=== PATIENT | female | born 1990 | race Caucasian/White ===

== ENCOUNTER 2022-02-07 13:49 | Outpatient (CLI) | payer BC, SELFPAY ==
--- NOTE | 2022-02-07 14:00 | CRLHL7_ITS ---
For Patients: As a result of the Century Cures Act, medical imaging exams and procedure reports are released immediately into your electronic medical record. You may view this report before your referring provider. If you have questions, please contact your health care provider. INDICATION: FOLLOW UP PLACENTA LOCATION AND CERVIX COMPARISON: 01/10/2022 TECHNIQUE: Real time stack scale imaging of the fetus was performed with transvaginal and transabdominal technique. FINDINGS: Sonographic imaging demonstrates a single living intrauterine gestation. Fetus demonstrates a regular cardiac rate of 142 beats per minute. Fetus has a vertex position. The placenta lies along the left uterine wall without evidence of placenta previa. The edge of the placenta is located 3.8 cm from internal cervical os. Amniotic fluid volume appears normal and there is a single deepest vertical pocket: 4.6 cm. The estimated weight is 719gm which lies at the 58th %. On the prior OB ultrasound exam dated 01/10/2022 the estimated weight was at the 68th%. BPD 75th percentile. HC 58th percentile. AC 64th percentile. FL 29th percentile. IMPRESSION: The edge of the placenta is located 3.8 cm from the internal cervical os. No evidence of previa. The cervix is closed and measures 3.7 cm. Dictated by Harley Wood MD @ 02/07/2022 3:17:10 PM (Electronically Signed)
== END 2022-02-07 13:50 | disposition home or self-care (01) ==
LOC: US 13:50
PROVIDERS: Visit Provider Obstetrics & Gynecology
DX: O44.20 Partial placenta previa NOS or without hemorrhage, unspecified trimester (principal)
CPT/HCPCS: 76816; 76817

== ENCOUNTER 2022-03-07 13:22 | Outpatient (CLI) | payer BC, SELFPAY ==
[2022-03-08 17:45] LABS: Rapid Plasma Reagin (RPR) Non Reactive (Non Reactive)
== END 2022-03-07 13:23 | disposition home or self-care (01) ==
LOC: NFLDREF 13:24
PROVIDERS: Visit Provider Obstetrics & Gynecology
DX: Z34.93 Encounter for supervision of normal pregnancy, unspecified, third trimester (principal); Z3A.28 28 weeks gestation of pregnancy
CPT/HCPCS: 86592

== ENCOUNTER 2022-05-02 16:11 | Outpatient (CLI) | payer BC, SELFPAY ==
[2022-05-03 13:04] LABS: Strep B DNA Probe NEGATIVE (Negative)
== END 2022-05-02 16:12 | disposition home or self-care (01) ==
PROVIDERS: Visit Provider Obstetrics & Gynecology
DX: Z34.93 Encounter for supervision of normal pregnancy, unspecified, third trimester (principal); Z3A.36 36 weeks gestation of pregnancy
CPT/HCPCS: 87081; 87653

== ENCOUNTER 2022-05-27 22:00 | Inpatient (IN) | payer BC, SELFPAY ==
--- OUTSIDE RECORDS SUMMARY | 2022-05-27 20:54 | XMS_ITS | Clinical Summary ---
:1990 Author Organization [facility] [place] [address] Care Team Providers Name Role Phone Pcp, No Primary Care Provider Unavailable Allergies Active Allergy Reactions Severity Noted Date Comments Penicillins *Unknown - Childhood Rxn 05/17/2014 Medications Medication Sig Dispensed Refills Start Date End Date Status betamethasone Apply topically to 15 g 0 03/18/2018 Active dipropionate 0.05% affected area(s) 2 (DIPROSONE 0.05% times daily. Apple CREAM) 0.05 % a thin film. Wash creamIndications: hands after Vulvar dystrophy application norgestimate-ethinyl Take 1 tablet by 84 tablet. 3 08/15/2020 Active estradioL mouth once daily. (TRI-SPRINTEC) 0.18/0.215/0.25 mg-35 mcg (28) tabletIndications: Encounter for contraceptive management, unspecified type clobetasol 0.05% Apply twice daily 1 Tube 2 08/15/2020 Active (TEMOVATE 0.05% to area for 2 OINTMENT) 0.05 % weeks, then once ointmentIndications: daily for 4 weeks Lichen sclerosus and then twice a week. Active Problems Problem Noted Date ASCUS of cervix with negative high risk HPV 11/20/2016 Overview: 11/20/2016 ASCUS/HPV negative 03/18/2018 NIL 08/15/2020 NIL/HPV negative Plan: Routine screening Immunizations Name Administration Dates Next Due Tdap 05/17/2012 Family History Medical History Relation Name Comments Asthma Brother Cancer Father bladder Other Maternal Grandfather liver cance r Other Maternal Grandmother dementia Good Health Mother Heart Disease Paternal Grandfather MA Cancer-breast No Family History Cancer-colon No Family History Cancer-ovarian No Family History Diabetes No Family History Stroke No Family History Relation Name Status Comments Brother Alive Father Alive Maternal Grandfather Maternal Grandmother Mother Alive Paternal Grandfather (Age 70) MA Paternal Grandmother (Age 82) liver can cer Social History Tobacco Use Types Packs/Day Years Used Date Never Smoker Smokeless Tobacco: Never Used Tobacco Cessation: Counseling Given: Yes Alcohol Use Standard Drinks/Week Comments Yes 1 (1 standard drink = 0.6 oz pure alcoho l) 1-2 drinks/week Alcohol Habits Answer Date Recorded How often do you have a drink containing alcohol? Monthly or less 05/06/2019 How many drinks containing alcohol do you have on a 1 or 2 05/06/2019 typical day when you are drinking? How often do you have six or more drinks on one Never 05/06/2019 occasion? Comment: 1-2 drinks/week 08/15/2020 Sex Assigned at Date Recorded Not on file Obstetrics History Para Term AB IAB SAB Ectopic Multiple Living Live Births 0 0 0 0 0 0 0 0 0 0 0 Last Filed Vital Signs Vital Sign Reading Time Taken Comments Blood Pressure 116/70 11/13/2020 1:01 PM CDT Pulse 72 11/13/2020 1:01 PM CDT Temperature - - Respiratory Rate 16 05/28/2015 2:20 PM [employer]ER Oxygen Saturation 98% 05/28/2015 2:20 PM [employer] Inhaled Oxygen Concentration - - Weight 56.1 kg (123 lb 9.6 oz) 11/13/2020 1:01 PM CDT Height 163.8 cm (5' 4.5) 11/13/2020 1:01 PM CDT Body Mass Index 20.89 11/13/2020 1:01 PM CDT Plan of Treatment Health Maintenance Due Date Last Done Comments COVID-19 vaccine series (#1) 04/02/1989 Hepatitis C screening for age 0309/30/2006 18-79 Depression screening for age 12+ 08/15/2021 08/15/2020, , 03/18/2018, Additional history exists BMI (ht and wt on same day) for 11/13/2021 11/13/2020, 07/21, age 18+ 05/06/2019, Additional history exists Influenza for age 9-49 03/20/2022 Tetanus booster 05/17/2022 05/17/2012 Pap test for age 21-65 10/11/2026 10/11/2021, 10/11/2021, 08/15/2020, Additional history exists Tdap Completed 05/17/2012 Results Not on filefrom Last 3 Months Insurance Payer Benefit Plan / Subscriber ID Effective Dates Phone Addre ss Type Group BLUE CROSS BLUE [employer] OF [id number] 2016-Present [address] [place] [address] Care Teams Coordinator Skill Training Program Relationship Specialty Start Date End Date Pcp, No PCP - General 04/30/20 .
[2022-05-27 21:05] VITALS: BP 132/82; PULSE 99; RESP 15; TEMP 36.7
[2022-05-27 21:52] LABS: Amnisure Rom* POSITIVE
--- NOTE | 2022-05-27 22:22 | W.PM.LDBA ---
Documented by User: Enedelia Eckert MD 05/27/22 22:31 Subjective History of Present Illness Narrative: Patient is being admitted to Labor and Delivery for SROM at term. She is a 31 year old at 39 6/7 weeks gestation by 1st trimester US not consistent with LMP, JEANNETTE 05/28/22. She had SROM at 1999 and reported clear fluid. JEANNETTE Calculator ? Estimated Delivery Date Method Current WG Current Estimate 05/28/22 Ultrasound #1 39w 6d Other Estimates 05/21/22 LMP (Certain) 40w 6d Expected Delivery Route/Plan Specific Issues/Plans Spouse: Juarez. Baby: baby Boy JEANNETTE 05/28/22 by 1st trimester USN Bloodtype: O+ 1.? Lichen sclerosis 2. Rubella non-immune --MMR 3. Marginal placenta previa at her 20 week ultrasound on 01/10/2022 ?--tip of the placenta 0.7-1.3 cm from the internal cervical os ?--02/07/22: Resolved. Placenta tip 3.7 cm from the os. Her full history and physical was dictated by Ameena Mares CNM on 05/09/22. Please see this for details. OB - H&P: Exam Physical Exam: Vital signs: Temp Pulse Resp BP 98.1 F 99 15 132/82 05/27/22 21:05 05/27/22 21:05 05/27/22 21:05 05/27/22 21:05 Narrative: SVE per PADMINI Casanova: / -3 tracing: Baseline 130 / accels present / no decels / moderate variability OB - Problem Based A/P Additional Plan (1) Normal labor: Status: Acute Plan: 31 yo woman at 39 6/7 weeks' gestation in early labor after SROM at 1999 on 05/27/22. GBS negative. Category I tracing. Plan Expectant management. Epidural as desired. Intermittent monitoring acceptable until labor. Documented by User: Lorna Kilgore MD 05/28/22 08:51 Subjective History of Present Illness Time Seen by Provider: 08:00 Date Seen: 05/28/22 Comments: The patient was managed expectantly overnight. At last check, at 4:30 a.m., or cervix was 4.5 cm dilated, 80% effaced, with vertex at a -1 station and suspected ROP position. Light meconium-stained amniotic fluid is noted this morning. Contractions are mild to moderate, occurring at about 5 minute intervals. The patient rates her discomfort at 4/10 with contractions. OB - H&P: Exam Physical Exam: Narrative: SVE per RN Alexa Casanova: 2 60 / -3 on admission. tracing: Baseline 130 / accels present / no decels / moderate variability on admission. Constitutional: Constitutional: no acute distress and cooperative Routine HEENT Exam: Head: Present atraumatic and normal inspection Eye: Present normal appearance Routine Neck Exam: Neck: Present full ROM Routine Respiratory Exam: Respiratory: Present CTA bilaterally Routine Cardiovascular Exam: Cardiovascular: RRR Routine Abdominal Exam: Abdominal: Present soft; Absent tenderness Detailed Labor and Delivery Exam: Patient Gravid: yes Dilation (cm): 4 Effacement (%): 80 Tachysystole: No Contraction intensity: Mild Fetus (Single): Station: -1 Position: Right Occiput Posterior Amniotic Membrane Status: SROM Amniotic Membrane Fluid Description: Meconium Stained Monitor Accelerations: Absent Monitor Decelerations: None Medical Microbiologist Variability: Moderate (11-25) Routine Extremities Exam: Extremities: Present normal inspection Routine Neurological Exam: Present alert and oriented X3 Routine Psychiatric Exam: Present normal affect OB - Problem Based A/P Additional Plan (1) Normal labor: Status: Acute Delivery/Labor/Induction Plan Plan: expectant management
[2022-05-27 22:50] VITALS: BP 122/78; PULSE 70; RESP 16; TEMP 36.8
[2022-05-27 23:23] LABS: SARS PCR* Negative SARS-CoV-2 (Negative)
[2022-05-28] VITALS (47 sets, daily range): BP systolic 120–159; BP diastolic 67–95; PULSE 69–157; RESP 15–18; TEMP 36.7–37.2; O2SAT 78–98
--- NOTE | 2022-05-28 13:00 | PM.OBPNL ---
Subjective Time Seen by Provider: 13:00 Date Seen: 05/28/22 Narrative: The patient is rating her contractions as 8/10 in intensity, but appears to be very comfortable yet with contractions. States that she is having more constant pelvic pressure. Objective Exam: Vitals per EMR. General appearance: Alert cooperative female in no acute distress. Abdomen: Soft, intermittently firm with contractions. : see below. Vital Signs: Last Vital Signs Temp 98.3 F 05/28/22 12:40 Pulse 91 05/28/22 12:44 Resp 16 05/28/22 12:40 BP 131/76 05/28/22 12:44 Pelvic Exam Dilation (cm): 5 Effacement (%): 100 Station: 0 Comments: ROP Contractions Contraction pattern: Irregular Contraction intensity: Mild Assessment Station: 0 Amniotic Membrane Status: SROM Status: Category l Heart Rate Baseline: 135 Director Loss Prevention Variability: Moderate (6-25) Monitor Accelerations: Present Monitor Decelerations: None Plan Plan: Recommended pitocin augmentation of labor due to slow progress and prolonged rupture of membranes.
[2022-05-28 13:58] LABS: Hematocrit 37.1 % (33.0-51.0); Hemoglobin* 12.5 gm/dL (12.0-16.0); Immature Granulocytes Pct Auto 0.2 %; Mean Corpuscular HGB Conc 34 gm/dL (32-36); Mean Corpuscular Hemoglobin 30 pg (26-34); Mean Corpuscular Volume 89 fL (80-100); Monocytes Percent Auto 4.4 % (0.0-11.0); Neutrophils Percent Auto 89.4 % (42.0-72.0); Platelet Count* 273 K/uL (140-440); RDW Coefficient of Variation % 17.4 % (11.5-15.5); Red Blood Count 4.18 m/uL (4.00-5.20)
[2022-05-28 14:18] LABS: Slide Review Reflex No
[2022-05-28] MEDS: OXYTOCIN 30 unit/500 ML in NS 30 UNIT/500 ML BAG IVPB (14:20)
[2022-05-28] MEDS: LACTATED RINGERS 1000 ML 1,000 ML 125 ML IV (14:20)
--- NOTE | 2022-05-28 16:38 | P.OBPRC_ITS ---
Procedure Delivery date: 05/28/22 Procedure Done: Global Intrapartal Events: ROM >18 Hours Delivery augmentation: pitocin Delivery monitor: external FHT and external uterine Route of delivery: (on birthing chair) Laceration description: Perineal - 3rd Degree (Partial, on right) Delivery repair: Vicryl (2-0 to reapproximate the sphincter capsule) and Chromic (3-0) Estimated blood loss (mL): 300 Anesthesia type: Nitrous Disposition: floor Complications: None. Narrative: The patient is a 31 year-old admitted on 05/27/2022 at 39 Weeks, 6 Days gestation for SROM.? Cervical exam on admission was 2 cm/80 % effaced/0 station with membranes ruptured in vertex presentation.? Contractions were every 5-7 minutes.? heart rate demonstrated baseline 130 bpm with moderate variability, + accelerations, - decelerations; a category 1 tracing.? SROM occurred at 2000 with clear fluid. Later, thin meconium staining of the amniotic fluid was noted. ? Labor Analgesia:? Nitrous ? Pitocin:? Yes, to augment labor when cervical dilatation stalled out at 5 cm ? Labor onset:? 0700 on 05/28/2022 ? Complete:? 1517 ? Pushing:? 1526, on birthing chair. ? heart tones during second stage were category 2, 125 beat per minute baseline with variable decelerations to 90s, good variability and good return to baseline. ? At 1526 a viable male infant delivered in vertex OA presentation over perineal laceration via spontaneous vaginal delivery.? was placed on maternal abdomen.? Cord was clamped and cut after a 30-60 second delay.? Nose and mouth were bulb suctioned.? weight pending.? 8 at 1 minute and 9 at 5 minutes.? Shoulder dystocia: No.? Nuchal cord: Yes, x1, reduced over the head prior to delivery of the shoulders.. ? Placenta delivered spontaneously and complete at 1557 with a 3 vessel cord. ? Mother and were stable after delivery. ? Lacerations:? Partial third-degree perineal laceration, repaired with 2-0 Vicryl (reapproximation of the torn sphincter on the right) and 3-0 chromic (for the usual layered repair). ? Blood loss: 300 mL. Blood loss measurement type: EBL ? Sponge and needles counts are correct. [place] Infant Gender: Male presentation: vertex Placental Delivery Description: Spontaneous (Appeared bilobed) Cord Description: 3 Vessels and Nuchal Cord (x1, reduced prior to delivery of shoulders)
[2022-05-28] MEDS: LIDOCAINE 1% MDV 20 ML INJECTION (19:17)
[2022-05-29 00:30] VITALS: BP 119/79; PULSE 86; RESP 15; TEMP 36.8
[2022-05-29] MEDS: IBUPROFEN 600 MG TABLET PO ×2 (02:12→16:25)
[2022-05-29 05:00] VITALS: BP 101/66; PULSE 76; RESP 16; TEMP 36.6
[2022-05-29 07:36] LABS: Hemoglobin* 10.6 gm/dL (12.0-16.0)
--- NOTE | 2022-05-29 07:41 | P.OBPN_ITS ---
OB - PN:Subj Subjective Time Seen by Provider: 07:25 Date Seen: 05/29/22 Interval history: Into room for introductions and to assess patientHill Mckinney is a 31 year old G 1 now P 1 at 40 0/7d weeks gestation that was admitted to the Center on 05/27/22 for SROM. She had an uncomplicated vaginal delivery. She delivered a viable male . She is breast feeding and hand expressing for bottle feeding. Vitals have been stable.? She has remained afebrile.? She is voiding without difficulty.? She is passing gas and has not had a bowel movement.? She is ambulating and denies any dizziness.? the patient has done well. Patient comments OB post-: pain well controlled infant status: and doing well (Difficulty maintaining body temperature) feeding status: other ( and expressing ) OB - PN: Obj Exam Physical Exam: Vital signs: Temp Pulse Resp BP Pulse Ox O2 Del Method 97.9 F 76 16 101/66 98 05/29/22 05:00 05/29/22 05:00 05/29/22 05:00 05/29/22 05:00 05/28/22 19:30 05/28/22 19:30 Constitutional: Constitutional: no acute distress Routine HEENT Exam: Head: Present normocephalic Eye: Present normal appearance Routine Neck Exam: Neck: Present full ROM Routine Chest/Breast/Axilla Exam: Comments: Breasts deferred Routine Respiratory Exam: Respiratory: Present CTA bilaterally Routine Cardiovascular Exam: Cardiovascular: Present RRR Routine Abdominal Exam: Abdominal: Present normal bowel sounds, soft and tenderness Fundus: Present firm (u/u) Comments: Lochia like a heavy period, no clots. Routine Exam: Comments: Deferred per pt, no complaints or concerns Routine Extremities Exam: Extremities: Present full ROM; Absent pedal edema Routine Back/Spine/Pelvis Exam: Back/Spine: Present full ROM Routine Skin Exam: Skin: Present dry, intact, normal color and warm; Absent rash Routine Neurological Exam: Neurological: Present alert and oriented X3 Detailed Neurological Exam: Coma Scale: Eye Opening: Spontaneous (4) Verbal Response: Orientated (5) Routine Psychiatric Exam: Psychiatric: Present normal affect, normal thought process, cooperative, good insight and good judgment OB - PN: Obj Data Labs Labs: Laboratory Results - last 24 hr 05/28/22 05/28/22 13:45 13:45 WBC 20.50 H RBC 4.18 Hgb 12.5 Hct 37.1 MCV 89 MCH 30 MCHC 34 RDW Coeff of Fabiola 17.4 H Plt Count 273 Neut % (Auto) 89.4 H Lymph % (Auto) 6.0 L [place] % (Auto) 4.4 Eos % (Auto) 0.0 Baso % (Auto) 0.0 Neut # (Auto) 18.30 H Lymph # (Auto) 1.20 [place] # (Auto) 0.90 Eos # (Auto) 0.00 Baso # (Auto) 0.00 Abs Immat Gran (auto) 0.00 Imm/Tot Granulo (auto) 0.2 Blood Type O Positive Antibody Screen NEGATIVE OB - PN: A/P Vaginal Delivery Assessment and Plan (1) Status post normal vaginal delivery: Status: Acute (2) Lactating mother: Status: Acute Plan 31 yo Day 1 Plan day: 1 Plan: routine care
[2022-05-29 08:45] VITALS: BP 105/70; PULSE 79; RESP 16; TEMP 36.6; O2SAT 96
[2022-05-29 12:03] VITALS: BP 110/75; PULSE 95; RESP 16; TEMP 36.6; O2SAT 97
[2022-05-29 16:11] VITALS: BP 130/87; PULSE 88; RESP 16; TEMP 36.6; O2SAT 98
[2022-05-29 16:25] VITALS: TEMP 36.6
[2022-05-30 01:00] VITALS: BP 111/72; PULSE 84; RESP 15; TEMP 36.6
--- NOTE | 2022-05-30 08:09 | P.DS_ITS ---
DS: Providers Provider Date Seen: 05/30/22 Date of admission: 05/27/22 22:00 Primary care physician: Not a Local Provider Admitting Clinician: Enedelia Eckert MD Attending Physician on discharge: Anand Torres CNM Date of Discharge: 05/30/22 DS: Diagnosis Discharge Diagnosis (1) Status post normal vaginal delivery: Status: Acute (2) Lactating mother: Status: Acute Exam Narrative: Exam Narrative: Discharge Examination? GENERAL APPEARANCE:? normal affect, alert, no distress? MOOD:? appropriate? CHEST:? clear to auscultation and percussion? HEART:? regular rate and rhythm? ABDOMEN:? soft, non-tender the uterine fundus is 2 cm Below Umbilicus, Midline and is appropriate for the stage of recovery.? PERINEUM:? mild edema of the perineum, there is a 3rd degree that is healing well.? EXTREMITIES:? normal and no edema? Patient has no complaints? No active bleeding?? Doing well? Const: Vital Signs, click to edit/add: Vital Signs - 24 hr 05/29/22 08:45 05/29/22 12:03 05/29/22 16:11 Temperature 98 F 98 F 97.9 F Pulse Rate [Blood Pressure Cuff] 79 95 88 Respiratory Rate 16 16 16 Blood Pressure [Le ft Arm] 105/70 110/75 130/87 Pulse Oximetry 96 97 98 Oxygen Delivery Me thod Room Air Room Air Room Air 05/29/22 16:25 05/30/22 01:00 Temperature 97.9 F 97.8 F Pulse Rate [Blood Pressure Cuff] 84 Respiratory Rate 15 Blood Pressure [Le ft Arm] 111/72 Pulse Oximetry Oxygen Delivery Me thod OB - DS: Summary Hospital Course Hospital Course: Patient is a 31year old, G 1 now P 1? admitted on 05/28/22 at 40 Weeks, 0 Days gestation for SROM.? She had an uncomplicated vaginal delivery.? She delivered a viable male .? She is breast feeding and reports things are going well.? the patient has done well.? Her pain is well controlled with current medications.? She has no new complaints.? Vitals have been stable. She has remained afebrile. She is voiding without difficulty. She is passing gas and has not had a bowel movement. She is ambulating and denies any dizziness. She is planning for control.?She is requesting discharge home.?? Peripartum Data Infant delivery method: Vaginal Laceration description: Perineal - 3rd Degree (partial) Episiotomy description: None complications: none Infant Gender: Male Discharge Plan: Home Status at Discharge Functional status at discharge: independent ambulation Overall status at discharge: patient is progressing back to baseline Time Spent with Patient Time attestation: Total time spent providing and/or coordinating discharge services: Discharge Plan Discharge Disposition: Home, Self-Care Date of Admission: 05/27/22 22:00 Attending Provider on Discharge: Irina Torres Primary Care Provider: Provider,Not a Local Condition: Stable Anticipated Discharge Date/Time: 05/30/22 22:00 Discharge Medications: New docusate sodium 100 mg Capsule 100 mg PO BID Qty: 60 0RF ibuprofen 600 mg Tablet 600 mg PO Q6H PRNQty: 30 0RF Continued prenat.vits,bryan,[id number] Tablet 1 tab PO QDAY ferrous sulfate 325 mg (65 mg iron) tablet 325 mg PO QDAY Qty: 60 0RF Discharge Orders: Discharge Order (Routine); Ordered 05/30/22 Ordered By: Irina Torres Patient Education: OB Vaginal/Breast Feeding Additional Instructions: Discharge instructions were reviewed with the patient including signs and symptoms of infection and home going medications Nothing vaginally for 6 weeks: no tampons or intercourse Do not drive while taking narcotic pain medication(s) Off Work or School for 8 weeks Symptoms to report to doctor: * Bleeding that saturates more than one pad per hour * Passing clots larger than the size of a golf ball * Pain not relieved by prescribed medication * Fever above 100.4 degrees Fahrenheit * A foul vaginal odor * Difficulty in emotions, mood, and functions * Thoughts of hurting yourself and/or * Painful, reddened area in your breast * Any drainage, redness, or tenderness in your IV/epidural site * Severe headache that doesn't improve after taking medications * Changes in vision, including temporary loss of vision, blurred vision, and/or light sensitivity * Upper abdominal pain (usually under ribs on the right side) * Decrease in urination or painful, frequent urinating * Chest pain * Shortness of breath * Tenderness or pain with redness and/swelling in the calf(s) of your leg Optional 2-week visit: discuss infant feeding concerns, review control options and screen for anxiety/depression. 6-week visit for an annual exam. consultation services are available to all mothers and babies for the first year after delivery.? To make an appointment, please call [phone]. Activity Level: No Restrictions and Activity as Tolerated Discharge Diet: Regular Follow Up Appointments: [facility] [Provider Group] Provider,Not a Local [Primary Care Provider] - Forms: [employer] Info Instructions
[2022-05-30 09:15] VITALS: BP 116/75; PULSE 90; RESP 16; TEMP 36.7
[2022-05-30] MEDS: IBUPROFEN 600 MG TABLET PO (13:35)
[2022-05-30] MEDS: MEASLES,MUMPS,RUBELLA VACC/PF 1 DOSE INJ 1 EACH SUBCUT (13:35)
== END 2022-05-30 15:06 | disposition home or self-care (01) | DRG 560 ==
LOC: OB OUT 22:01 → OB 22:01
PROVIDERS: Obstetrics & Gynecology; Admitting Provider Obstetrics & Gynecology; Visit Provider Obstetrics & Gynecology
DX: O63.0 Prolonged first stage (of labor) (principal); O77.0 Labor and delivery complicated by meconium in amniotic fluid; O70.20 Third degree perineal laceration during delivery, unspecified; Z3A.39 39 weeks gestation of pregnancy; Z37.0 Single live birth
CPT/HCPCS: 36415; 84112; 85018; 85025; 86850; 86900; 86901; 87635; 88307; A9270; J7120

== ENCOUNTER 2023-09-25 13:47 | Outpatient (CLI) | payer OTHER, SELFPAY ==
--- NOTE | 2023-09-25 14:00 | US_ITS ---
Patient: LIONEL JOHNSON Facility:?[facility] Patient ID:?[id number] Site Patient ID:?[id number]. Site :?[id number] Study:?US-OB Pelvis OB TV-09/25/2023 2:25:31 PM Ordering Physician:?YAIMA ASENCIO Final Report: INDICATION: Dating and viability. LMP 07/21/2023. COMPARISON: None. TECHNIQUE: Real-time stack-scale imaging of the pelvis was performed. FINDINGS: Sonographic imaging demonstrates a single living intrauterine gestation. The embryo has a regular cardiac rate measuring 180 beats per minute. The embryo`s crown-rump length measures 2.6 cm which corresponds to a gestational age of 9 weeks 3 days with sonographic due date 04/26/2024. There is a normal-appearing yolk sac. The placenta has not yet developed. No evidence of a perigestational hemorrhage. The right ovary measures 3.7 x 2.1 x 2.6 cm and the left ovary measures 3.4 x 1.3 x 1.5 cm. Corpus luteal cyst in the right ovary. No free fluid in the pelvic cul-de-sac. IMPRESSION: 1. Single living intrauterine gestation corresponding to a gestational age of 9 weeks 3 days with sonographic due date 04/26/2024. 2. The clinical gestational age by LMP is 9 weeks 3 days. Dictated by Ai Roman MD @ 09/26/2023 3:47:38 AM Signed by:?Ai Roman MD @09/26/2023 3:47:38 AM (Electronic Signature)
== END 2023-09-25 13:48 | disposition home or self-care (01) ==
LOC: US 13:48
PROVIDERS: Visit Provider Registered Nurse
DX: Z34.91 Encounter for supervision of normal pregnancy, unspecified, first trimester (principal); Z3A.09 9 weeks gestation of pregnancy
CPT/HCPCS: 76817; 86592; 86703; 86704; 86706; 86762; 86787; 86803; 86850; 86900; 86901; 87086; 87340; 87491; 87591

== ENCOUNTER 2024-02-05 09:30 | Outpatient (CLI) | payer OTHER, SELFPAY ==
--- OUTSIDE RECORDS SUMMARY | 2024-02-08 14:54 | XMS_ITS | Encounter Summary ---
Author Organization [place] Address [address] [place] [address] Care Team Providers Care Hydraulic Rockbreaker Operator Name Role Phone No Ref-Primary, Physician Primary Care Provider Reason for Referral * Diagnostic Imaging Ultrasound (Routine) - Pending Review Specialty Diagnoses / Procedures Referred By Contac t Referred To Contact Radiology. Diagnoses Encounter for repeat ultrasound of pyelectasis, antepartum Procedures [facility] US Comprehensive Single F/U Terrence López MD [address] [place] [address] Referral ID Status Reason Start Date Expiration Date V isits Requested Visits Authorized [id number] Pending Review 12/04/2023 12/03/2024 1 1 Reason for Visit * Reason Comments Ultrasound L2-AMA Encounter Details Date Type Department Care Team (Late st Contact Info) Description 12/04/2023 2:45 PM CDT Office Visit [facility] [place] [address] [facility] [address] [place] [address] Terrence López MD [address] [place] [address] Multigravida of advanced maternal age in second trimester (Primary Dx); Encounter for repeat ultrasound of pyelectasis, antepartum, single or unspecified fetus Social History Tobacco Use Types Packs/Day Years Used Date Smoking Tobacco: Never Assessed Adolescent Education Answer Date Record ed Getting School Help Needed Not on file 11/29 Estimated Date of Delivery Comme nts Yes 04/26/2024 Based on last me nstrual period of 07/21/2023 Sex and Gender Information Value Date Recorded Sex Assigned at Not on file Gender Identity Not on file Sexual Orientation Not on file documented as of this encounter Progress Notes * Terrence López MD - 12/04/2023 2:45 PM CDT Please see Imaging tab under Chart Review for details of today's US at the [facility]. Terrence López MD Maternal- Medicine documented in this encounter Nursing Notes * Emi Hickman RN - 12/04/2023 2:45 PM CDT Patient presents to [facility] for L2 at 19w3d due to AMA. Positive movement. Denies LOF, vaginal bleeding or cramping/contractions. SBAR given to [facility] , see their note in Epic.; documented in this encounter Plan of Treatment Upcoming Encounters Date Type Department Care Team (Late st Contact Info) Description 03/02/2024 8:00 AM CDT Appointment [facility] Maternal Medicine [facility] [address] [facility] [address] [place] [address] Terrence López MD [address] [place] [address] 03/02/2024 8:30 AM CDT Office Visit [facility] Medicine [facility] [address] [facility] [address] [place] [phone] Terrence López MD [address] [place], [place] [phone] Scheduled Orders Name Type Priority Associated Diagnoses Orde r Schedule M US Comprehensive Single F/U Imaging Routine Encounter for repeat ultrasound of pyelectasis, antepartum, single or unspecified fetus Expected: 03/04/2024 (Approximate), Expires: 12/03/2024 documented as of this encounter Visit Diagnoses Diagnosis Multigravida of advanced maternal age in second trimester- Primary Encounter for repeat ultrasound of pyelectasis, antepartum, single or unspecified fetus documented in this encounter Care Teams Hydraulic Rockbreaker Operator Relationship Specialty Start Date End Date No Ref-Primary, Physician PCP - General 10/27/23 documented as of this encounter
--- OUTSIDE RECORDS SUMMARY | 2024-02-08 14:54 | XMS_ITS | Referral Summary ---
Author Organization [place] Address [address] [place] [address] Care Team Providers Care Reagent Tender Helper Name Role Phone No Ref-Primary, Physician Primary Care Provider Encounters Date Type Department Care Team Description 12/04/2023 Travel 12/04/2023 2:45 PM CDT Office Visit [facility] Medicine [facility] [address] [place] [phone] Terrence López MD Multigravida of advanced maternal age in second trimester (Primary Dx); Encounter for repeat ultrasound of pyelectasis, antepartum, single or unspecified fetus 12/04/2023 1:26 PM CDT - 12/04/2023 11:59 PM CDT Hospital Encounter [facility] Medicine [facility] [address] [place] [phone] Terrence López MD related condition, antepartum Discharge Disposition: Home or Self Care 12/04/2023 1:30 PM CDT Office Visit [facility] Medicine [facility] [address] [place] [phone] Terrence López MD Volesky, Mariah, GC Multigravida of advanced maternal age in second trimester (Primary Dx); related condition, antepartum 11/30/2023 PRE VISIT [facility] Medicine [facility] [address] [place] [address] Emi Hickman RN Ultrasound (L2-AMA); Genetic Counseling (GC-AMA) from Last 3 Months Social History Tobacco Use Types Packs/Day Years [...] on file Sexual Orientation Not on file Plan of Treatment Upcoming Encounters Date Type Department Care Team (Late st Contact Info) Description 03/02/2024 8:00 AM CDT Appointment [facility] Maternal Medicine [facility] [address] [facility] [address] [place] [phone] Terrence López MD [address] [place], [place] [address] 03/02/2024 8:30 AM CDT Office Visit [facility] Maternal Medicine [facility] [address] [address] [facility] [address] [place] [phone] Terrence López MD [address] [place], [place] [address] Procedures Procedure Name Priority Date/Time Associated Diagnosis Comments [facility] US COMPREHENSIVE SINGLE Routine 12/04/2023 3:06 PM CDT related condition, antepartum from Last 3 Months Results * [facility] US Comprehensive Single (12/04/2023 3:06 PM CDT) Anatomical Region Laterality Modality Ultrasound 12/04/2023 2:21 PM CDT Impressions 12/04/2023 3:23 PM CDT IMPRESSION ----- 1. Loyd at 19w 3d gestational age. 2. Mild bilateral pyelectasis (UTD A2) is seen. 2. No other anomalies or aneuploidy markers commonly detected by ultrasound were identified in the detailed anatomic survey within the limits of ultrasound. 3. Growth parameters and estimated weight were consistent with gestational age predicted by assigned JEANNETTE. 4. The amniotic fluid volume appeared normal. 5. On transabdominal imaging the cervix appeared long and closed. Narrative 12/04/2023 3:23 PM CDT ?Comprehensive ----- Pat. Name: LIONEL JOHNSON ? Study Date: ??12/04/2023 2:21pm Pat. NO: ??[id number] ?Referring ??MD: LORNA SAHU Site: [facility] ? Ripening Room Operator: Lyudmila Frank RDMS : ??1990 ?Age: ?? 33 ----- INDICATION ----- Advanced maternal age. Declined screening. METHOD ----- Transabdominal ultrasound examination. View: Sufficient ----- Loyd . Number of fetuses: 1 DATING ----- ? Date ?Details ?Gest. age ?JEANNETTE LMP ?07/21/2023 ? 19 w + 3 d ? 04/26/2024 Prior assessment ? 09/25/2023 ?GA: 9 w + 3 d ? 19 w + 3 d ? 04/26/2024 U/S ? 12/04/2023 ? based upon AC, BPD, Femur, HC ?19 w + 6 d ? 04/23/2024 Assigned dating ?Dating performed on 12/04/2023, based on the LMP ?19 w + 3 d ? 04/26/2024 GENERAL EVALUATION ----- Cardiac activity present. FHR 149 bpm. movements present. Presentation Variable. Placenta Anterior, fundal, No Previa, > 2 cm from internal os. Umbilical cord 3 vessel cord. Amniotic fluid Amount of AF: normal. MVP 5.7 cm. BIOMETRY ----- Main Biometry: BPD ?46.0 ?mm ? 19w 6d ?Hadlock OFD ?58.9 ?mm ? 19w 2d ?Nicolaides HC ?169.0 ?mm ?19w 4d ?Hadlock Cerebellum tr ?21.1 ? mm ?20w 1d ?Nicolaides AC ?155.9 ?mm ?20w 5d ?85% ?Hadlock Femur ?29.9 ? mm ?19w 2d ?Hadlock Humerus ?30.1 ?mm ? 19w 6d ?Cindy Weight Calculation: EFW ? 326 ? g ? 76% ?Hadlock EFW (lb,oz) ? 0 lb 11 ? oz EFW by ?Hadlock ([id number]) Head / Face / Neck Biometry: Gear Finisher ? 6.3 ? mm CM ?4.5 ? mm Nasal bone ? 5.8 ? mm Nuchal fold ? 3.6 ? mm Urinary Tract Biometry: Rt Renal pelvis ap ? 4.4 ? mm Lt Renal pelvis ap ? 4.3 ?mm ANATOMY ----- The following structures appear normal: Head / Neck ? Cranium. Head size. Head shape. Lateral ventricles. Choroid plexus. Midline falx. Cavum septi pellucidi. Cerebellum. Cisterna magna. ? Parenchyma. Thalami. Vermis. ? Neck. Nuchal fold. Face ? Lips. Profile. Nose. Maxilla. Mandible. Orbits. Lens. Heart / Thorax ?4-chamber view. RVOT view. LVOT view. Situs. Aortic arch view. Bicaval view. Ductal arch view. Superior vena cava. Inferior vena cava. 3-vessel ? view. 7-znpnsj-wwjakmc view. Cardiac position. Cardiac size. Cardiac rhythm. ? Right lung. Left lung. Diaphragm. Abdomen ? Abdominal wall. Cord insertion. Stomach. Kidneys. Bladder. Liver. Bowel. Genitals. Spine ?Cervical spine. Thoracic spine. Lumbar spine. Sacral spine. Extremities / Skeleton ?Right arm. Right hand. Left arm. Left hand. Right leg. Right foot. Left leg. Left foot. MATERNAL STRUCTURES ----- Cervix ?Visualized ? Appearance: Appears Closed ? Approach - Transabdominal: Cervical length 33.2 mm Right Ovary ?Visualized Left Ovary ?Visualized RECOMMENDATION ----- We discussed the findings on today's ultrasound with the patient. We reviewed that mild urinary tract dilation is seen in 1-2% of fetuses in the second trimester. The cause for pyelectasis is most often secondary to partial UPJ obstruction or reflux and usually resolves by 32 weeks or in the period. Additionally, mild urinary tract dilation is associated with trisomy 21, with a likelihood ratio of 1.5. We discussed that this increases her risk of trisomy 21 to 1 in 180 from her age related risk of 1 in 280. The patient declined aneuploidy screening. A follow up ultrasound to reevaluate the kidneys is recommended at 32 weeks. This ultrasound will determine if ongoing surveillance and pediatric urology follow-up is indicated. If it has resolved at her subsequent ultrasound then no evaluation is indicated. Return to primary provider for continued care. Thank-you for the opportunity to participate in the care of this patient. If you have questions regarding today's evaluation or if we can be of further service, please contact the Maternal- Medicine Center. anomalies may be present but not detected Procedure Note Terrence López MD - 12/04/2023 Comprehensive ----- Pat. Name: LIONEL JOHNSON Study Date: 12/04/2023 2:21pm Pat. NO: [id number] Referring MD: LORNA SAHU Site: [facility] Ripening Room Operator: Lyudmila Frank RDMS : 1990 Age: 33 ----- INDICATION ----- Advanced maternal age. Declined screening. METHOD ----- Transabdominal ultrasound examination. View: Sufficient ----- [place]oyd . Number of fetuses: 1 DATING ----- DateDetailsGest. age JEANNETTE LMP w + 3 d 04/26/2024 Prior assessment 09/25/2023 GA: 9 w +3 d19 w + 3 d 04/26/2024 U/S 12/04/2023ased upon AC, BPD, Femur, HC19 w + 6 d 04/23/2024 Assigned dating Dating performed on 12/04/2023, based onthe LMP 19 w +3 d 04/26/2024 GENERAL EVALUATION ----- Cardiac activity present. FHR 149 bpm. movements present. Presentation Variable. Placenta Anterior, fundal, No Previa, > 2 cm from internal os. Umbilical cord 3 vessel cord. Amniotic fluid Amount of AF: normal. MVP 5.7 cm. BIOMETRY ----- Main Biometry: BPD 46.0 mm19w 6d Hadlock OFD 58.9 mm19w 2d Nicolaides HC 169.0 mm19w 4d Hadlock Cerebellum tr 21.1 mm20w 1d Nicolaides AC 155.9 mm20w 5d 85% Hadlock Femur 29.9 mm19w 2d Hadlock Humerus 30.1 mm19w 6d Cindy Weight Calculation: EFW 326 g76% Hadlock EFW (lb,oz) 0 lb 11 oz EFW by Hadlock ([id number]-FL) Head / Face / Neck Biometry: Gear Finisher 6.3 mm CM 4.5 mm Nasal bone 5.8 mm Nuchal fold 3.6 mm Urinary Tract Biometry: Rt Renal pelvis ap 4.4 mm Lt Renal pelvis ap 4.3 mm ANATOMY ----- The following structures appear normal: Head / Neck Cranium. Head size. Head shape.Lateral ventricles. Choroid plexus. Midline falx. Cavum septi pellucidi.Cerebellum. Cisterna magna. Parenchyma. Thalami. Vermis. Neck. Nuchal fold. Face Lips. Profile. Nose. Maxilla.Mandible. Orbits. Lens. Heart / Thorax 4-chamber view. RVOT view. LVOT view.Situs. Aortic arch view. Bicaval view. Ductal arch view. Superior venacava. Inferior vena cava. 3-vessel view. 7-kboouf-wtetyjb view.Cardiac position. Cardiac size. Cardiac rhythm. Right lung. Left lung.Diaphragm. Abdomen Abdominal wall. Cord insertion.Stomach. Kidneys. Bladder. Liver. Bowel. Genitals. Spine Cervical spine. Thoracic spine.Lumbar spine. Sacral spine. Extremities / Skeleton Right arm. Right hand. Left arm. Lefthand. Right leg. Right foot. Left leg. Left foot. MATERNAL STRUCTURES ----- Cervix Visualized Appearance: Appears Closed Approach - Transabdominal:Cervical length 33.2 mm Right Ovary Visualized Left Ovary Visualized RECOMMENDATION ----- We discussed the findings on today's ultrasound with the patient. We reviewed that mild urinary tract dilation is seen in 1-2% of fetuses inthe second trimester. The cause for pyelectasis is most often secondary topartial UPJ obstruction or reflux and usually resolves by 32 weeks or in the period.Additionally, mild urinary tract dilation is associated with trisomy 21,with a likelihood ratio of 1.5. We discussed that this increases her risk of trisomy 21 to 1 in 180 from herage related risk of 1 in 280. The patient declined aneuploidy screening. A follow up ultrasound to reevaluate the kidneys is recommended at32 weeks. This ultrasound will determine if ongoing surveillance andpostnatal pediatric urology follow-up is indicated. If it has resolved at her subsequent ultrasoundthen no evaluation is indicated. Return to primary provider for continued care. Thank-you for the opportunity to participate in the care of this patient.If you have questions regarding today's evaluation or if we can be offurther service, please contact the Maternal- Medicine Center. anomalies may be present but not detected IMPRESSION ----- 1. Loyd at 19w 3d gestational age. 2. Mild bilateral pyelectasis (UTD A2) is seen. 2. No other anomalies or aneuploidy markers commonly detected byultrasound were identified in the detailed anatomic survey withinthe limits of ultrasound. 3. Growth parameters and estimated weight were consistent withgestational age predicted by assigned JEANNETTE. 4. The amniotic fluid volume appeared normal. 5. On transabdominal imaging the cervix appeared long and closed. Lorna LANCE [facility] US ORDERABLE S from Last 3 Months Care Teams Reagent Tender Helper Relationship Specialty Start Date End Date No Ref-Primary, Physician PCP - General 10/27/23
--- OUTSIDE RECORDS SUMMARY | 2024-02-08 14:54 | XMS_ITS | Encounter Summary ---
Author Organization [place] Address [address] [place] [address]. [place] [address] Care Team Providers Care Re Examiner Name Role Phone No Ref-Primary, Physician Primary Care Provider Encounter Details Date Type Department Care Team (Latest Contact Info) Description 12/04/2023 Travel Social History Tobacco Use Types Packs/Day Years [...] on file documented as of this encounter Plan of Treatment Upcoming Encounters Date Type Department Care Team ( Contact Info) Description 03/02/2024 8:00 AM CDT Appointment [facility] Maternal Medicine [facility] [place] [address] [facility] [place] [address] Terrence López MD [address] [place], [place] [address] 03/02/2024 8:30 AM CDT Office Visit [facility] Maternal Medicine [facility] [address] [place] [phone] Terrence López MD [address] [place], [place] [address] documented as of this encounter Visit Diagnoses Not on filedocumented in this encounter Care Teams Re Examiner Relationship Specialty Start Date End Date No Ref-Primary, Physician PCP - General 10/27/23 documented as of this encounter
--- OUTSIDE RECORDS SUMMARY | 2024-02-08 14:54 | XMS_ITS | Encounter Summary ---
Author Organization [place] Address [address] [place] [address] Care Team Providers Care Wealth Management Advisor Name Role Phone No Ref-Primary, Physician Primary Care Provider Reason for Referral * Diagnostic Imaging Ultrasound (Routine) - Pending Review Specialty Diagnoses / Procedures Referred By Contac t Referred To Contact Radiology. Diagnoses related condition, antepartum Procedures [facility] US Comprehensive Lorna Horner MD [facility] [address] [place], [place] [id number] Referral ID Status Reason Start Date Expiration Date V isits Requested Visits Authorized [id number] Pending Review 10/26/2023 10/25/2024 1 1 Reason for Visit * Diagnostic Imaging Ultrasound (Routine) - Pending Review Specialty Diagnoses / Procedures Referred By Contac t Referred To Contact Radiology. Diagnoses related condition, antepartum Procedures [facility] US Comprehensive Lorna Horner MD [facility] [address] [place] [address] Referral ID Status Reason Start Date Expiration Date V isits Requested Visits Authorized [id number] Pending Review 10/26/2023 10/25/2024 1 1 Encounter Details Date Type Department Care Team (Latest Contact Info) Description 12/04/2023 1:26 PM CDT - 12/04/2023 11:59 PM CDT Hospital Encounter [facility] Maternal Medicine [facility] [place] [address] [facility] [address] [place] [address] Terrence López MD [address] [place], [place] [address] related condition, antepartum Discharge Disposition: Home or Self Care Social History Tobacco Use Types Packs/Day Years [...] Info) Description 03/02/2024 8:00 AM CDT Appointment [facility] Maternal Medicine [place] [address] [facility] [facility] [address] [place] [address] Terrence López MD [address] [place], [place] [phone] 03/02/2024 8:30 AM CDT Office Visit [facility] Maternal Medicine [place] [address] [facility] [address] [place] [phone] Terrence López MD [address] [place], [place] [address] documented as of this encounter Procedures Procedure Name Priority Date/Time Associated Diagnosis Comments [facility] US COMPREHENSIVE SINGLE Routine 12/04/2023 3:06 PM CDT related condition, antepartum documented in this encounter Results * [facility] US Comprehensive Single (12/04/2023 3:06 PM [...] ? Study Date: ??12/04/2023 2:21pm Pat. NO: ??[id number] ?Referring ??: LORNA KILGORE Site: ??[facility] ? Environment Artist: Lyudmila Frank RDMS : ??1990 ?Age: ?? [...] lb 11 ? oz EFW by ?Hadlock ([id number]-FL) Head / Face / Neck Biometry: Geological Aide ? 6.3 ? mm CM ?4.5 ? [...] cava. Inferior vena cava. 3-vessel ? view. 3-xdiljh-yvktmyp view. Cardiac position. Cardiac size. Cardiac rhythm. [...] JOHNSON Study Date: 12/04/2023 2:21pm Pat. NO: [id number] Referring MD: LORNA KILGORE Site: [facility] Environment Artist: Lyudmila Frank RDMS : 1990 Age: 33 ----- INDICATION ----- Advanced maternal age. Declined screening. METHOD ----- Transabdominal ultrasound examination. View: Sufficient ----- Loyd . Number of fetuses: 1 DATING ----- DateDetailsGest. age JEANNETTE LMP w + 3 d 04/26/2024 Prior assessment 09/25/2023 GA: 9 w +3 d19 w + 3 d 04/26/2024 U/S 4based upon AC, BPD, Femur, HC19 w + [...] 0 lb 11 oz EFW by Hadlock ([id number]-FL) Head / Face / Neck Biometry: Geological Aide 6.3 mm CM 4.5 mm Nasal bone [...] Superior venacava. Inferior vena cava. 3-vessel view. 0-tckldg-ysrpbeo view.Cardiac position. Cardiac size. Cardiac rhythm. Right [...] the cervix appeared long and closed. Lorna Kilgore MD [facility] US ORDERABLE S documented in this encounter Visit Diagnoses Diagnosis related condition, antepartum documented in this encounter Care Teams Wealth Management Advisor Relationship Specialty Start Date End Date No Ref-Primary, Physician PCP - General 10/27/23 documented as of this encounter
--- OUTSIDE RECORDS SUMMARY | 2024-02-08 14:54 | XMS_ITS | Clinical Summary ---
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 Apple a thin film. Wash hands after application 15 g 03/18/2018 Active norgestimate-ethinyl estradioL (TRI-SPRINTEC) 0.18/0.215/0.25 mg-35 mcg (28) tabletIndications:En counter for contraceptive management, unspecified type Take 1 tablet by mouth once daily. 84 tablet. 3 08/15/2020 Active clobetasol 0.05% (TEMOVATE 0.05% OINTMENT) 0.05 % ointmentIndications: Lichen sclerosus Apply twice daily to area for 2 weeks, then once daily for 4 weeks and then twice a week. 1 Tube 2 08/15/2020 Active Active Problems Problem Noted Date Diagnosed Date ASCUS of cervix with negative high risk HPV 10/2016 Overview: 11/20/2016 ASCUS/HPV negative 03/18/2018 NIL 08/15/2020 NIL/HPV negative Plan: Routine screening Immunizations Name Administration Dates Next Due Tdap 05/17/2012 Family History Medical History Relation Name Comments Asthma Brother Cancer Father bladder Other Maternal Grandfather liver c ancer Other Maternal Grandmother dementi a Good Health Mother Heart Disease Paternal Grandfather [place] Cancer-breast No Family History Cancer-colon No Family History Cancer-ovarian No Family History Diabetes No Family History Stroke No Family History Relation Name Status Comments Brother Alive Father Alive Maternal Grandfather Maternal Grandmother Mother Alive Paternal Grandfather (Age 70) [place] Paternal Grandmother (Age 82) li matt cancer Social History Tobacco Use Types Packs/Day Years Used Date Smoking Tobacco: Never Smokeless Tobacco: Never Tobacco Cessation:Counseling Given: Yes Alcohol Use Standard Drinks/Week Comments Yes 1 (1 standard drink = 0.6 oz pur e alcohol) 1-2 drinks/week Social Connections Answer Date Recorded Frequency of Communication with Friends and Fami ly Not on file 11/15/2021 Sex and Gender Information Value Date Recorded Sex Assigned at Not on file Gender Identity Not on file Sexual Orientation Not on file Obstetrics History Para Term AB IAB SAB Ectopic Multiple Livin g Live Births 0 0 0 0 0 0 0 0 0 0 0 Last Filed Vital Signs Vital Sign Reading Time Taken Comments Blood Pressure 116/70 11/13/2020 1:01 PM CDT Pulse 72 11/13/2020 1:01 PM CDT Temperature - - Respiratory Rate 16 05/28/2015 2:20 PM [facility] [facility] Oxygen Saturation 98% 05/28/2015 2:20 PM [facility] [employer] [facility] Inhaled Oxygen Concentration - - Weight 56.1 kg (123 lb 9.6 oz) 11/13/2020 1:01 P M CDT Height 163.8 cm (5' 4.5) 11/13/2020 1:01 PM CDT Body Mass Index 20.89 11/13/2020 1:01 PM CDT Plan of Treatment Health Maintenance Due Date Last Done Comments HIV for age 15-65 10/01/2003 Hepatitis C screening for age 18-79 2006 Depression screening for age 12+ 08/15/2021 08/15/2020, 05/06/2019, 03/18/2018, Additional history exists BMI (ht and wt on same day) for age 18+ 11/13/2021 11/13/2020, 08/15/2020, 05/06/2019, Additional history exists Tetanus booster 05/17/2022 05/17/2012 COVID-19 vaccine series ( season) 2023 Influenza for age 9-49 03/20/2024 Pap test for age 21-65 10/11/2026 , 10/11/2021, 08/15/2020, Additional history exists Tdap Completed 05/17/2012 Pneumococcal series for age 6-64 Aged Out No longer eligible based on patient's age to complete this topic Procedures Procedure Name Priority Date/Time Associated Diagnosis Comments HPV THIN PREP Routine 10/11/2021 2:30 PM CDT from Last 3 Months or Most Recently Relevant to Health Maintenance Results * HPV HIGH RISK (10/11/2021 2:30 PM CDT) TYPE 16 Negative Negative 10/17/2021 10:54 AM CDT [facility] TYPE 18 Negative Negative 10/17/2021 10:54 AM CDT [facility] OTHER HIGH RISK TYPES Negative Negative 10/17/2021 10:54 AM CDT [facility] Other (Cervical/Vagina l) 10/11/2021 2:30 PM CDT 10/15/2021 8:53 AM CDT Narrative [facility] - 10/17/2021 10:54 AM CDT HPV types 16, 18, 31, 33, 35, 39, 45, 51, 52, 56, 58, 59, 66 and 68 DNA were undetectable or below the pre-set threshold. Methodology: Shaye Lupe 4800 HPV Test October Fang [facility] [address] [place] [address], [place] from Last 3 Months or Most Recently Relevant to Health Maintenance Care Teams Gang Drill Operator Relationship Specialty Start Date End Date Pcp, No . PCP - General 04/30/20
--- OUTSIDE RECORDS SUMMARY | 2024-02-08 14:54 | XMS_ITS | Encounter Summary ---
Author Organization [facility] Address [address] [place] [address]. [place] [address] Care Team Providers Care Manager Lpn Name Role Phone No Ref-Primary, Physician Primary Care Provider Reason for Visit * Reason Comments Ultrasound L2-AMA Genetic Counseling GC-AMA Encounter Details Date Type Department Care Team (Late Contact Info) Description 11/30/2023 PRE VISIT [facility] Maternal Medicine [facility] [address] [place] [address] Emi Hickman RN Ultrasound (L2-AMA); Genetic Counseling (GC-AMA) Social History Tobacco Use Types Packs/Day Years [...] Upcoming Encounters Date Type Department Care Team ([facility] Contact Info) Description 03/02/2024 8:00 AM CDT Appointment [facility] Maternal Medicine [facility] [address] [place] [address] Terrence López MD [address] [facility] [address] [place] [address] 03/02/2024 8:30 AM CDT Office Visit [facility] M[facility] Medicine [facility] [place] [address] [facility] [address] [place] [address] Terrence López MD [address] [facility] [address] [place] [address] documented as of this encounter Visit Diagnoses Not on filedocumented in this encounter Care Teams Manager Lpn Relationship Specialty Start Date End Date No Ref-Primary, Physician PCP - General 10/27/23 documented as of this encounter
--- OUTSIDE RECORDS SUMMARY | 2024-02-08 14:54 | XMS_ITS | Encounter Summary ---
Author Organization [facility] Address [address] [place] [address]. [place] [address] Care Team Providers Care Florist'S Decorator Name Role Phone No Ref-Primary, Physician Primary Care Provider Reason for Visit * Reason Comments Genetic Counseling * Consultation (Routine: Next available opening) - Pending Review Specialty Diagnoses / Procedures Referred By Contbreezy t Referred To Contact Diagnoses related condition, antepartum Suppes, Lorna Sarmiento MD [facility] [address], [place] [address] Referral ID Status Reason Start Date Expiration Date V isits Requested Visits Authorized [id number] Pending Review 10/26/2023 10/25/2024 1 1 Encounter Details Date Type Department Care Team (Late st Contact Info) Description 12/04/2023 1:30 PM CDT Office Visit [facility] [place] [address] [facility] [address] [place] [address] Terrence López MD [address] [address] Angella Vincent GC [facility] [address] [address] Multigravida of advanced maternal age in second trimester (Primary Dx); related condition, antepartum Social History Tobacco Use Types Packs/Day Years [...] as of this encounter Progress Notes * Angella Vincent, GC - 12/04/2023 1:30 PM CDT [facility] Medicine Center Genetic Counseling Consult Patient: Faye JOHNSON Preferred Name: Faye Date of : 1990 Date of Service: 12/04/23 Faye was seen at the [facility] for genetic consultation. The indication for genetic counseling is advanced maternal age. The patient was accompanied to this visit by their partner, Juarez. The session was conducted in [place]. IMPRESSION/ PLAN 1. Faye has not had genetic screening in this and declines options discussed today. 2. During today's [facility] visit, Faye had a genetic counseling session only. Screening and diagnostic testing was discussed and declined. 4. Faye had a level II comprehensive anatomy ultrasound today. Please see the ultrasound report for further details. Pyelectasis was noted on the level II comprehensive ultrasound today. Genetic counseling took place prior to ultrasound and the couple declined meeting with genetic counseling andgenetic screening after. The couple is aware that screening remains available to them. 5. Further recommendation include a follow-up ultrasound with [facility]. The upcoming ultrasound has beenscheduled for 03/02/2024. HISTORY /Parity: Faye's history is significant for: 2021: carried to term with their healthy 18mo old son CURRENT Current Age: [age] year old Age at Delivery: 33 year old JEANNETTE: 04/26/2024, by Last Menstrual Period Gestational Age: 19w3d This is a single gestation. This was conceived spontaneously. MEDICAL HISTORY Faye???s reported medical history is not expected to impact management or risks to development. FAMILY HISTORY A three-generation pedigree was obtained today and is scanned under the Media tab in [employer]. The family history was reported by Faye and their partner. The following significant findings were reported today: Faye's partner, Juarez, is currently 34 years old and healthy Juarez reports there is a family history of a maternal cousin affected with a rare genetic condition, which causes significant muscle loss, however he was not sure what the name of the condition is. He reports there is no treatment for the condition and his cousin is not expected to live past childhood. Juarez reports that his maternal uncle and aunt were both mutual carriers for this condition andthere is only one other documented case of the condition in [place]. We discussed that if Juarez's maternal uncle is a carrier of the condition, there is a 50% chance that his mother is also a carrier of the condition, therefore a 25% chance that Juarez is a carrier of the condition. However, based onthe rarity described by Juarez, the chance that Faye is also a carrier of the condition is very low. We discussed carrier screening and Faye and Juarez are not interested in screening at this time. If carrier screening is ever pursued by the couple, a copy of the cousin's genetic testing reportor confirmatory diagnosis would be important to ensure that condition would be included in a commoncarrier screening panel. Juarez reports that he had a different maternal cousin born with a hole in his heart, however, surgery was not required to correct this opening. A patent foramen ovale (PFO) is a hole between the right and left atrium. It is often referred to as simply a hole in the heart. This hole is present in the heart during to allow oxygenated blood to travel from the right atrium to the left atrium and through the left ventricle out the aorta to the body. As a result the blood skips the lungs since it was oxygenated through the placenta and gets the most oxygen to the brain. This hole typically closes sometime after but is a normal finding in a fetus. A echocardiogram would likely detect this opening because it is a normal finding. When a PFO persists after , generally individuals are asymptomatic. Otherwise, the reported family history is unremarkable for multiple miscarriages, stillbirths, defects, intellectual disabilities, known genetic conditions, and consanguinity. RISK ASSESSMENT FOR INHERITED CONDITIONS AND CARRIER SCREENING OPTIONS Expanded carrier screening is available to screen for autosomal recessive conditions and X-linked conditions in a large list of genes. Carrier screening does not test the but gives a risk assessment for the and future pregnancies to have the condition. Expanded carrier screeningis designed to identify carrier status for conditions that are primarily childhood or adolescent onset. Expanded carrier screening does not evaluate for adult-onset conditions such as hereditary cancer syndromes, dementia/ Alzheimer's disease, or cardiovascular disease risk factors. Additionally, expanded carrier screening is not comprehensive for all known genetic diseases or inherited conditions. Carrier screening does not test for all genetic and health conditions or risk factors. Autosomal recessive conditions happen when a mutation has been inherited from the egg and sperm andinclude conditions like cystic fibrosis, thalassemia, hearing loss, spinal muscular atrophy, and more. We reviewed that when both biological parents carry a harmful genetic change in a gene associated with autosomal recessive inheritance, each of their pregnancies has a 1 in 4 (25%) chance to be affected by that condition. X-linked conditions happen when a mutation has been inherited from the eggand include conditions like fragile X syndrome.With x-linked conditions, the specific risk generally depends on the chromosomal sex of the fetus, with XY individuals (generally male) being most severely affected. Star screening was reviewed. About [place] Star Screening The patient does have a family history of a known inherited condition. This condition is incrediblyrare and Juarez and Faye were unsure of the name of the condition. Please see the family history section for further details. The patient has not had carrier screening previously. The patient declined the carrier screening options. They are aware the option will remain, and theycan contact us if they would like to pursue screening. See below for the more detailed information we dicussed. Carrier screening does not test the but gives a risk assessment for the and future pregnancies to have the condition There are different size panels or list of conditions for carrier screening. Some conditions cause health problems for carriers. We discussed that in the event of an incidentalfinding, further evaluation regarding screening or further testing may be recommended. Carrier screening does not test for all genetic and health conditions or risk factors The results typically take 2-3 weeks. RISK ASSESSMENT FOR CHROMOSOME CONDITIONS We explained that the risk for chromosome abnormalities increases with maternal age. We discussed specific features of common chromosome abnormalities, including trisomy 21 (Down syndrome), trisomy 13, trisomy 18, and sex chromosome trisomies. At age 35 at midtrimester, the risk to have a baby with Down syndrome is 1 in 274. At age 35 at midtrimester, the risk to have a baby with any chromosome abnormality is 1 in 135. At age 35 at delivery, the risk to have a baby with Down syndrome is 1 in 385. At age 35 at delivery, the risk to have a baby with any chromosome abnormality is 1 in 202. Faye has not had genetic screening in this and declines options discussed today. GENETIC TESTING OPTIONS Genetic testing during a includes screening and diagnostic procedures. Screening tests are non-invasive which means no risk to the and includes ultrasounds and blood work. The benefits and limitations of screening were reviewed. Screening tests provide a risk assessment (chance) specific to the for certain chromosome abnormalities but cannot definitively diagnose or exclude a chromosome abnormality. Follow-up genetic counseling and consideration of diagnostic testing is recommended with any abnormal screening result. Diagnostic testing during a is more certain and can test for more conditions. However, the tests do have a risk of miscarriage that requires careful consideration. These tests can detect chromosome ab normalities with greater than 99% certainty. Results can be compromised by maternal cell contamination or mosaicism and are limited by the resolution of current genetic testing technology. There is no screening or diagnostic test that detects all forms of defects or intellectual disability. We discussed the following screening options: Non-invasive testing (NIPT) Also called cell-free DNA screening because it detects chromosomes from the placenta in the person's blood Can be done any time after 10 weeks gestation Standard recommendation for NIPT screens for trisomy 21, trisomy 18, trisomy 13, with the option ofadding sex chromosome aneuploidies, without or without predicted sex Cannot screen for open neural tube defects, maternal serum AFP after 15 weeks is recommended New NIPT options include screening for other trisomies, microdeletion syndromes, and in some cases blood antigens. Guidelines do not recommend these conditions are included in standard screening. These options have limitations and should be discussed with a genetic counselor. However, current (2022) ACMG guidelines do recommend that screening for one microdeletion syndrome,called 22q11.2 deletion syndrome be offered to all patients. 22q11.2 deletion syndrome hasan estimated prevalence of 1 in 990 to 1 in 2148 (0.05-0.1%). Risk is not thought to increase with maternal age. Clinical features are variable but include congenital heart defects, cleft palate, developmental delays, immune system deficiencies, and hearing loss. Approximately 90% of cases are de shoaib (a sporadic new change in a ). Cell-free DNA screening for 22q11.2 deletion syndrome isavailable with the inclusion of other microdeletion syndromes. There is less data about the performance of cell-free DNA screening for more rare microdeletions and the chance for false positives or negative may be increased. We discussed the limitations of cell-free DNA screening in detecting microdeletions and the possiblity of false positives and false negatives. The patient declined microdeletion syndrome screening. We discussed the following ultrasound options: Comprehensive level II ultrasound ( Anatomy Ultrasound) Ultrasound done between 18-20 weeks gestation Screens for major defects and markers for aneuploidy (like trisomy 21 and trisomy 18) Includes looking at the fetus/baby's growth, heart, organs (stomach, kidneys), placenta, and amniotic fluid We discussed the following diagnostic options: Amniocentesis Invasive diagnostic procedure done after 15 weeks gestation The procedure collects a small sample of amniotic fluid for the purpose of chromosomal testing and/or other genetic testing Diagnostic result; more than 99% sensitivity for chromosome abnormalities Testing for AFP in the amniotic fluid can test for open neural tube defects It was a pleasure to be involved with [facility]. [id number] time of the meeting was 30 minutes. Angella Vincent GC, MS, [facility] Board Certified and [place] Licensed Genetic Counselor [facility] Maternal Medicine Office: [phone] [facility]: [phone] [facility] documented in this encounter Plan of Treatment Upcoming Encounters Date Type Department Care Team (Late st Contact Info) Description 03/02/2024 8:00 AM CDT Appointment [facility] Medicine [facility] [address] [facility] [address] [place] [address] Terrence López MD [address] [facility] [address] [place] [address] 03/02/2024 8:30 AM CDT Office Visit [facility] [place] [address] [place] [address] Terrence López MD [address] [place] [address] [address] [place] [address] documented as of this encounter Visit Diagnoses Diagnosis Multigravida of advanced maternal age in second trimester- Primary related condition, antepartum documented in this encounter Care Teams Florist'S Decorator Relationship Specialty Start Date End Date No Ref-Primary, Physician PCP - General 10/27/23 documented as of this encounter
--- OUTSIDE RECORDS SUMMARY | 2024-02-08 14:54 | XMS_ITS | Clinical Summary ---
Author Organization [facility] Address [address] [place] [address] Care Team Providers Care Fabricating Machine Operator Name Role Phone No Ref-Primary, Physician Primary Care Provider Encounters Date Type Department Care Team Description 12/04/2023 2:45 PM CDT Office Visit [facility] [address] [facility] [address] [place] [address] Terrence López MD Multigravida of advanced maternal age in second trimester (Primary Dx); Encounter for repeat ultrasound of pyelectasis, antepartum, single or unspecified fetus 12/04/2023 1:30 PM CDT Office Visit [facility] [address] [place] [phone] Terrence López MD Volesky, Mariah Multigravida of advanced maternal age in second trimester (Primary Dx); related condition, antepartum 12/04/2023 1:26 PM CDT - 12/04/2023 11:59 PM CDT Hospital Encounter [facility] [address] [place] [address] Terrence López MD related condition, antepartum Discharge Disposition: Home or Self Care 12/04/2023 Travel 11/30/2023 PRE VISIT [facility] [address] [place] [address] Emi Hickman, RN Ultrasound (L2-AMA); Genetic Counseling (GC-AMA) from [...] Info) Description 03/02/2024 8:00 AM CDT Appointment [facility] Maternal Medicine [facility] [address] [place] [address] Terrence López MD [address] [place], [place] [address] 03/02/2024 8:30 AM CDT Office Visit [facility] Maternal Medicine [facility] [address] [place] [address] Terrence López MD [address] [place], [place] [address] Health Maintenance Due Date Last Done Comments ADVANCE CARE PLANNING 1990 ANNUAL REVIEW OF HM ORDERS 1990 GLUCOSE 1988 HIV SCREENING 10/01/2003 HEPATITIS C SCREENING 2006 YEARLY PREVENTIVE VISIT 08/15/2021 08/15/2020 PHQ-2 (once per calendar year) 2023 MATERNAL SCREENING DISCUSSION 09/29/2023 OBGCT (OB) 01/05/2024 INFLUENZA VACCINE (#1) 2024 , 03/25/2022, 02/22/2022 RSV VACCINE ( & 60+) (1 - Risk 1-dose series) 03/20/2024 PAP 10/11/2024 10/11/2021 DTAP/TDAP/TD IMMUNIZATION (8 - Td or Tdap) 03/21/2032 03/21/2022, 05/17/2012, 07/28/2007, Additional history exists IPV IMMUNIZATION Completed 11/08/1993, , 05/21/1990, Additional history exists HEPATITIS B IMMUNIZATION Completed 999, 05/10/1997, 04/03/1997 HPV IMMUNIZATION Completed 04/27/2009, , 10/25/2008 COVID-19 Vaccine Completed 09/25/2023, , 10/25/2020, Additional history exists MENINGITIS IMMUNIZATION Aged Out No l onger eligible based on patient's age to complete this topic Pneumococcal Vaccine: Pediatrics (0 to 5 Years) and At-Risk Patients (6 to 64 Years) Aged Out No longer eligible based on patient's age to complete this topic RSV MONOCLONAL ANTIBODY Aged Out No l onger eligible based on patient's age to complete this topic Procedures Procedure Name Priority Date/Time Associated Diagnosis Comments [facility] US COMPREHENSIVE SINGLE Routine 12/04/2023 3:06 PM CDT related condition, antepartum from Last 3 Months Results * [facility] US Comprehensive Single (12/04/2023 3:06 PM CDT) [...] ? Study Date: ??12/04/2023 2:21pm Pat. NO: ??[id number] ?Referring ??MD: LORNA KILGORE Site: ??[facility] ? Cork Tipper: Lyudmila Frank RDMS : ??1990 ?Age: ?? [...] lb 11 ? oz EFW by ?Hadlock ([id number]-YT-XP-FL) Head / Face / Neck Biometry: Doctor Of Nursing Practice ? 6.3 ? mm CM ?4.5 ? [...] cava. Inferior vena cava. 3-vessel ? view. 8-yfezii-aevoqgc view. Cardiac position. Cardiac size. Cardiac rhythm. [...] - 12/04/2023 Comprehensive ----- Pat. Name: LIONEL JONHSON Study Date: 12/04/2023 2:21pm Pat. NO: [id number] Referring MD: LORNA KILGORE Site: [facility] Cork Tipper: Lyudmila Frank RDMS : 1990 Age: 33 [...] 0 lb 11 oz EFW by Hadlock ([id number]-[id number]-JQ-FL) Head / Face / Neck Biometry: Doctor Of Nursing Practice 6.3 mm CM 4.5 mm Nasal bone [...] Superior venacava. Inferior vena cava. 3-vessel view. 8-vsutwn-kxkenie view.Cardiac position. Cardiac size. Cardiac rhythm. Right [...] appeared long and closed. Lorna Kilgore MD [facility] ORDERABLE S from Last 3 Months Care Teams Fabricating Machine Operator Relationship Specialty Start Date End Date No Ref-Primary, Physician PCP - General 10/27/23
== END 2024-02-05 09:31 | disposition home or self-care (01) ==
LOC: NFLDREF 02-08 14:53
PROVIDERS: Visit Provider Obstetrics & Gynecology
DX: Z34.83 Encounter for supervision of other normal pregnancy, third trimester (principal)
CPT/HCPCS: 86592

== ENCOUNTER 2024-03-02 09:52 | Outpatient (CLI) | payer OTHER, SELFPAY ==
--- OUTSIDE RECORDS SUMMARY | 2024-03-02 09:55 | XMS_ITS | Referral Summary ---
Author Organization [place] Address [address] [place] [address] Care Team Providers Care Can Worker Name Role Phone No Ref-Primary, Physician Primary Care Provider Encounters Date Type Department Care Team Description 03/01/2024 Travel 12/04/2023 Travel 12/04/2023 2:45 PM CDT Office Visit [facility] Medicine [facility] [address] [facility] [address] [place] [address] Terrence López MD Multigravida of advanced maternal age in second trimester (Primary Dx); Encounter for repeat ultrasound of pyelectasis, antepartum, single or unspecified fetus 12/04/2023 1:26 PM CDT - 12/04/2023 11:59 PM CDT Hospital Encounter [facility] Maternal Medicine [facility] [address] [facility] [address] [place] [phone] Terrence López MD related condition, antepartum Discharge Disposition: Home or Self Care 12/04/2023 1:30 PM CDT Office Visit [facility] Medicine [facility] [address] [facility] [address] [place] [address] Terrence López MD Volesky, Mariah, GC Multigravida of advanced maternal age in second trimester (Primary Dx); related condition, antepartum from Last 3 Months Social History Tobacco [...] Orientation Not on file Plan of Treatment Not on file Procedures Procedure Name Priority Date/Time Associated Diagnosis Comments [facility] US COMPREHENSIVE SINGLE Routine 12/04/2023 3:06 PM CDT related condition, antepartum from Last 3 Months Results * [facility] US Comprehensive Single (12/04/2023 3:06 PM CDT) [...] ? Study Date: ??12/04/2023 2:21pm Pat. NO: ??[id number] ?Referring ??MD: LORNA KILGORE Site: ??[facility] ? Senior J2Ee Developer: Lyudmila Frank RDMS : ??1990 ?Age: ?? [...] Biometry: BPD ?46.0 ?mm ? 19w 6d ?Alexander DANIEL ?58.9 ?mm ? 19w 2d ?Nicolaides HC ?169.0 ?mm ?19w 4d ?Hadlock Cerebellum tr ?21.1 ? mm ?20w 1d ?Nicolaides AC ?155.9 ?mm ?20w 5d ?85% ?Hadlock Femur ?29.9 ? mm ?19w 2d ?Hadlock Humerus ?30.1 ?mm ? 19w 6d ?Cindy Weight Calculation: EFW ? 326 ? g ? 76% ?Hadlock EFW (lb,oz) ? 0 lb 11 ? oz EFW by ?Hadlock (MXO-YT-ZU-FL) Head / Face / Neck Biometry: Soil Scientist ? 6.3 ? mm CM ?4.5 ? [...] cava. Inferior vena cava. 3-vessel ? view. 9-jeothb-pfjhzac view. Cardiac position. Cardiac size. Cardiac rhythm. [...] JOHNSON Study Date: 12/04/2023 2:21pm Pat. NO: [id number] Referring MD: LORNA KILGORE Site: [facility] Senior J2Ee Developer: Lyudmila Frank RDMS : 1990 Age: 33 [...] 0 lb 11 oz EFW by Hadlock (ECP-LO-GB-FL) Head / Face / Neck Biometry: Soil Scientist 6.3 mm CM 4.5 mm Nasal bone [...] Superior venacava. Inferior vena cava. 3-vessel view. 3-vkyfxp-svaeixc view.Cardiac position. Cardiac size. Cardiac rhythm. Right [...] appeared long and closed. Lorna [facility]gore MD [facility] ORDERABLE S from Last 3 Months Care Teams Can Worker Relationship Specialty Start Date End Date No Ref-Primary, Physician PCP - General 10/27/23
--- OUTSIDE RECORDS SUMMARY | 2024-03-02 09:55 | XMS_ITS | Encounter Summary ---
Author Organization [place] Address [address] [place] [address] Care Team Providers Care Credit Card Associate Name Role Phone No Ref-Primary, Physician Primary [...] as of this encounter Plan of Treatment Not on file documented as of this encounter Visit Diagnoses Not on filedocumented in this encounter Care Teams Credit Card Associate Relationship Specialty Start Date End Date No Ref-Primary, Physician PCP - General 10/27/23 documented as of this encounter
--- OUTSIDE RECORDS SUMMARY | 2024-03-02 09:55 | XMS_ITS | Clinical Summary ---
Author Organization [facility] Address [address] [place] [address] Care Team Providers Care Detective Precinct Name Role Phone No Ref-Primary, Physician Primary Care Provider Encounters Date Type Department Care Team Description 03/01/2024 Travel 12/04/2023 2:45 PM CDT Office Visit [facility] [address] [facility] [address] [place] [address] Terrence López MD Multigravida of advanced maternal age in second trimester (Primary Dx); Encounter for repeat ultrasound of pyelectasis, antepartum, single or unspecified fetus 12/04/2023 1:30 PM CDT Office Visit [facility] Medicine [facility] [address] [facility] [address] [place] [phone] Terrence López MD Volesky, Mariah, GC Multigravida of advanced maternal age in second trimester (Primary Dx); related condition, antepartum 12/04/2023 1:26 PM CDT - 12/04/2023 11:59 PM CDT Hospital Encounter [facility] Medicine [facility] [address] [facility] [address] [place] [phone] Terrence López MD related condition, antepartum Discharge Disposition: Home or Self Care 12/04/2023 Travel from Last 3 Months Social History Tobacco [...] Orientation Not on file Plan of Treatment Health Maintenance Due Date [...] Procedure Name Priority Date/Time Associated Diagnosis Comments [facility] COMPREHENSIVE SINGLE Routine 12/04/2023 3:06 PM CDT related condition, antepartum from Last 3 Months Results * [facility] US Comprehensive Single (12/04/2023 3:06 PM CDT) [...] 3:23 PM CDT ?Comprehensive ----- Pat. Name: ADIAIDELEONARDO LIONEL ? Study Date: ??12/04/2023 2:21pm Pat. NO: ??[id number] ?Referring ??: LORNA SAHU Site: ??[facility] ? Sample Clerk: Lyudmila Frank RDMS : ??1990 ?Age: ?? [...] lb 11 ? oz EFW by ?Hadlock (VCM-BU-SA-FL) Head / Face / Neck Biometry: Grants Specialist ? 6.3 ? mm CM ?4.5 ? [...] cava. Inferior vena cava. 3-vessel ? view. 3-yxzqej-grexmal view. Cardiac position. Cardiac size. Cardiac rhythm. [...] JOHNSON Study Date: 12/04/2023 2:21pm Pat. NO: [id number] Referring MD: LORNA SAHU Site: [facility] Sample Clerk: Lyudmila Frank RDMS : 1990 Age: 33 [...] (lb,oz) 0 lb 11 oz EFW by Alexander (GHI-AC-GC-FL) Head / Face / Neck Biometry: Grants Specialist 6.3 mm CM 4.5 mm Nasal bone [...] Superior venacava. Inferior vena cava. 3-vessel view. 9-slzwgc-exleivp view.Cardiac position. Cardiac size. Cardiac rhythm. Right [...] imaging the cervix appeared long and closed. Lrona [facility] US ORDERABLE S from Last 3 Months Care Teams Detective Precinct Relationship Specialty Start Date End Date No Ref-Primary, Physician PCP - General 10/27/23
--- OUTSIDE RECORDS SUMMARY | 2024-03-02 09:55 | XMS_ITS | Encounter Summary ---
Author Organization [facility] Address [address] [place] [address] Care Team Providers Care Supervisor Dehydrogenation Name Role Phone No Ref-Primary, Physician Primary Care Provider Encounter Details Date Type Department Care Team (Latest Contact Info) Description 03/01/2024 Travel Social History Tobacco Use Types Packs/Day [...] on filedocumented in this encounter Care Teams Supervisor Dehydrogenation Relationship Specialty Start Date End Date No Ref-Primary, Physician PCP - General 10/27/23 documented as of this encounter
--- OUTSIDE RECORDS SUMMARY | 2024-03-02 09:56 | XMS_ITS | Encounter Summary ---
Author Organization [facility] Address [address] [place] [address] Care Team Providers Care Entry Level Staff Accountant Name Role Phone No Ref-Primary, Physician Primary Care Provider Reason for Visit * Reason Comments Ultrasound L2-AMA Genetic Counseling GC-AMA Encounter Details Date Type Department Care Team (Late st Contact Info) Description 11/30/2023 PRE VISIT [facility] Maternal Medicine Center [place] [address] [facility] [address] [place] [address] Emi Hickman, PADMINI Ultrasound (L2-AMA); Genetic Counseling (GC-AMA) Social History [...] on filedocumented in this encounter Care Teams Entry Level Staff Accountant Relationship Specialty Start Date End Date No Ref-Primary, Physician PCP - General 10/27/23 documented as of this encounter
--- OUTSIDE RECORDS SUMMARY | 2024-03-02 09:56 | XMS_ITS | Encounter Summary ---
Author Organization [facility] Address [address] [place] [address] Care Team Providers Care Flatwork Catcher Name Role Phone No Ref-Primary, Physician Primary Care Provider Reason for Referral * Diagnostic Imaging Ultrasound (Routine) - Pending Review Specialty Diagnoses / Procedures Referred By Contac t Referred To Contact Radiology. Diagnoses related condition, antepartum Procedures [facility] US Comprehensive Lorna Horner MD [facility] [address] [place], [place] [id number] Referral ID Status Reason Start Date Expiration Date V isits Requested Visits Authorized [id number] Pending Review 10/26/2023 10/25/2024 1 1 Reason for Visit * Diagnostic Imaging Ultrasound (Routine) - Pending Review Specialty Diagnoses / Procedures Referred By Contac t Referred To Contact Radiology. Diagnoses related condition, antepartum Procedures [facility] US Comprehensive Lorna Horner MD [facility] [address] [place] [address] Referral ID Status Reason Start Date Expiration Date V isits Requested Visits Authorized [id number] Pending Review 10/26/2023 10/25/2024 1 1 Encounter Details Date Type Department Care Team (Latest Contact Info) Description 12/04/2023 1:26 PM CDT - 12/04/2023 11:59 PM CDT Hospital Encounter [facility] Maternal Medicine [facility] [place] [address] [place] [address] Terrence López MD [address] [place] [address] [address] [place] [address] related condition, antepartum Discharge Disposition: Home or [...] on file documented as of this encounter Procedures Procedure Name Priority Date/Time Associated Diagnosis Comments [facility] US COMPREHENSIVE SINGLE Routine 12/04/2023 3:06 PM CDT related condition, antepartum documented in this encounter Results * [facility] US Comprehensive Single (12/04/2023 3:06 [...] ? Study Date: ??12/04/2023 2:21pm Pat. NO: ??[id number] ?Referring ??MD: LORNA KILGORE Site: ??[facility] ? Tactical Intelligence Officer: Lyudmila Frank RDMS : ??1990 ?Age: ?? [...] lb 11 ? oz EFW by ?Hadlock (LFV-HW-UC-FL) Head / Face / Neck Biometry: Assistant Women'S Rowing Coach ? 6.3 ? mm CM ?4.5 ? [...] cava. Inferior vena cava. 3-vessel ? view. 8-cdgjuf-gxytpjc view. Cardiac position. Cardiac size. Cardiac rhythm. [...] JOHNSON Study Date: 12/04/2023 2:21pm Pat. NO: [id number] Referring MD: LORNA KILGORE Site: [facility] Tactical Intelligence Officer: Lyudmila Frank RDMS : 1990 Age: 33 [...] 0 lb 11 oz EFW by Hadlock (BIA-SO-UP-FL) Head / Face / Neck Biometry: Assistant Women'S Rowing Coach 6.3 mm CM 4.5 mm Nasal bone [...] Superior venacava. Inferior vena cava. 3-vessel view. 2-atwgnp-xitmvzv view.Cardiac position. Cardiac size. Cardiac rhythm. Right [...] appeared long and closed. Lorna Kilgore MD [facility] US ORDERABLE S documented in this encounter Visit Diagnoses Diagnosis related condition, antepartum documented in this encounter Care Teams Flatwork Catcher Relationship Specialty Start Date End Date No Ref-Primary, Physician PCP - General 10/27/23 documented as of this encounter
--- OUTSIDE RECORDS SUMMARY | 2024-03-02 09:56 | XMS_ITS | Encounter Summary ---
Author Organization [facility] Address [address] [place] [address]. [place] [address] Care Team Providers Care Nutrition Services Assistant Name Role Phone No Ref-Primary, Physician Primary Care Provider Reason for Visit * Reason Comments Genetic Counseling * Consultation (Routine: Next available opening) - Pending Review Specialty Diagnoses / Procedures Referred By Contbreezy t Referred To Contact Diagnoses related condition, antepartum Suppes, Lorna Sarmiento MD [facility] [address], [place] [address] Referral ID Status Reason Start Date Expiration Date V isits Requested Visits Authorized [id number] Pending Review 10/26/2023 10/25/2024 1 1 Encounter Details Date Type Department Care Team (Late st Contact Info) Description 12/04/2023 1:30 PM CDT Office Visit [facility] Maternal Medicine Center [place] [address] [facility] [address] [place] [address] Terrence López MD [address] [address] Angella Vincent GC MATERNAL MEDICINE [address] [address] Multigravida of advanced maternal age [...] Vincent, GC - 12/04/2023 1:30 PM CDT [facility] Genetic Counseling Consult Patient: Faye JOHNSON Preferred Name: Faye Date of : 1990 Date of Service: 12/04/23 Faye was seen at the [facility] Maternal Medicine Center for genetic consultation. The indication for genetic counseling is advanced maternal age. The patient was accompanied to this visit by their partner, Juarez. The session was conducted in Faroese. IMPRESSION/ PLAN 1. Faye has not had genetic screening in this and declines options discussed today. 2. During today's [facility] visit, Faye had a genetic counseling [...] Further recommendation include a follow-up ultrasound with [facility]. The upcoming ultrasound has beenscheduled for [...] is scanned under the Media tab in [employer]. The family history was reported by Faye [...] individuals (generally male) being most severely affected. [place] was reviewed. About [place] The patient does have a family [...] was a pleasure to be [facility] with [facility] Gegb-sm-dndq time of the meeting was 30 minutes. Angella Vincent GC, MS, [facility] Board Certified and [place] Licensed Genetic Counselor [facility] Maternal Medicine Office: [phone] [facility]: [phone] [employer] documented in this encounter Plan of Treatment Not on file documented as of this encounter Visit Diagnoses Diagnosis Multigravida of advanced maternal age in second trimester- Primary related condition, antepartum documented in this encounter Care Teams Nutrition Services Assistant Relationship Specialty Start Date End Date No Ref-Primary, Physician PCP - General 10/27/23 documented as of this encounter
--- OUTSIDE RECORDS SUMMARY | 2024-03-02 09:56 | XMS_ITS | Clinical Summary ---
Author Organization [facility] Address [place], [place] [address] Care Team Providers Care Financial Specialist Name Role Phone Pcp, No Primary Care [...] Good Health Mother Heart Disease Paternal Grandfather MD Cancer-breast No Family History Cancer-colon No Family History Cancer-ovarian No Family History Diabetes No Family History Stroke No Family History Relation Name Status Comments Brother Alive Father Alive Maternal Grandfather Maternal Grandmother Mother Alive Paternal Grandfather (Age 70) MD Paternal Grandmother (Age 82) li matt cancer [...] - Respiratory Rate 16 05/28/2015 2:20 PM MANAGER ARCHITECTURAL Oxygen Saturation 98% 05/28/2015 2:20 PM MANAGER ARCHITECTURAL Inhaled Oxygen Concentration - - Weight 56.1 [...] 16 Negative Negative 10/17/2021 10:54 AM CDT [facility] TYPE 18 Negative Negative 10/17/2021 10:54 AM CDT [facility] OTHER HIGH RISK TYPES Negative Negative 10/17/2021 10:54 AM CDT [facility] Other (Cervical/Vagina l) 10/11/2021 2:30 PM CDT 10/15/2021 8:53 AM CDT Narrative [facility] - 10/17/2021 10:54 AM CDT HPV types 16, 18, 31, 33, 35, 39, 45, 51, 52, 56, 58, 59, 66 and 68 DNA were undetectable or below the pre-set threshold. Methodology: Shaye Lupe 4800 HPV Test October Fang [facility] [employer] [facility] [address] [place] [address], [place] from Last 3 Months or Most Recently Relevant to Health Maintenance Care Teams Financial Specialist Relationship Specialty Start Date End Date Pcp, No . PCP - General 04/30/20
--- OUTSIDE RECORDS SUMMARY | 2024-03-02 09:56 | XMS_ITS | Encounter Summary ---
Author Organization [facility] Address [address] [place] [address] Care Team Providers Care Case Repairer Name Role Phone No Ref-Primary, Physician Primary Care Provider Reason for Visit * Reason Comments Ultrasound L2-AMA Encounter Details Date Type Department Care Team (Late st Contact Info) Description 12/04/2023 2:45 PM CDT Office Visit [facility] Maternal Medicine Center [place] [address] [facility] [address] [place] [address] Terrence López MD [address] [place] [address] Multigravida of advanced maternal age [...] for details of today's US at the [facility]. Terrence López MD Maternal- Medicine documented in this encounter Nursing Notes * Emi Hickman, RN - 12/04/2023 2:45 PM CDT Patient presents to [facility] for L2 at 19w3d due to AMA. Positive movement. Denies LOF, vaginal bleeding or cramping/contractions. SBAR given to [facility] MD, see their note in Epic.; documented in this encounter Plan of Treatment Not on file documented as of this encounter Visit Diagnoses Diagnosis Multigravida of advanced maternal age in second trimester- Primary Encounter for repeat ultrasound of pyelectasis, antepartum, single or unspecified fetus documented in this encounter Care Teams Case Repairer Relationship Specialty Start Date End Date No Ref-Primary, Physician PCP - General 10/27/23 documented as of this encounter
== END 2024-03-02 09:53 | disposition home or self-care (01) ==
LOC: US 09:53
PROVIDERS: Visit Provider Obstetrics & Gynecology
DX: O35.EXX0 Maternal care for other (suspected) fetal abnormality and damage, fetal genitourinary anomalies, not applicable or unspecified (principal); Z3A.32 32 weeks gestation of pregnancy
CPT/HCPCS: 76816

== ENCOUNTER 2024-03-31 16:28 | Outpatient (CLI) | payer OTHER, SELFPAY ==
--- OUTSIDE RECORDS SUMMARY | 2024-03-31 16:29 | XMS_ITS | Referral Summary ---
Author Organization [place] Address [address] [place] [address] Care Team Providers Care Band Saw Filer Name Role Phone No Ref-Primary, Physician Primary Care Provider Encounters Date Type Department Care Team Description 03/01/2024 Travel from Last 3 Months Social History [...] file Plan of Treatment Not on file Care Teams Band Saw Filer Relationship Specialty Start Date End Date No Ref-Primary, Physician PCP - General 10/27/23
--- OUTSIDE RECORDS SUMMARY | 2024-03-31 16:29 | XMS_ITS | Clinical Summary ---
Author Organization [place] Address [address] [place] [address] Care Team Providers Care Forensic Psychiatrist Name Role Phone No Ref-Primary, Physician Primary [...] (#1) 2024 , 03/25/2022, 02/22/2022 RSV VACCINE (1 - Risk 1-dose series) 03/20/2024 GROUP B STREP SCREENING 03/29/2024 PAP 10/11/2024 10/11/2021 DTAP/TDAP/TD IMMUNIZATION (8 - Td or Tdap) 03/21/2032 03/21/2022, 05/17/2012, 07/28/2007, Additional history exists HEPATITIS B IMMUNIZATION Completed [...] on patient's age to complete this topic Care Teams Forensic Psychiatrist Relationship Specialty Start Date End Date No Ref-Primary, Physician PCP - General 10/27/23
--- OUTSIDE RECORDS SUMMARY | 2024-03-31 16:29 | XMS_ITS | Clinical Summary ---
Author Organization [facility] [employer] [facility] Address [place], [place] [address] Care Team Providers Care Shipping And Receiving Clerk Name Role Phone Pcp, No Primary Care [...] cervix with negative high risk HPV 10/2016 Overview (09/06/2020): 11/20/2016 ASCUS/HPV negative 03/18/2018 NIL 08/15/2020 NIL/HPV negative Plan: Routine screening Immunizations Name Administration Dates Next Due Tdap 05/17/2012 Family History Medical History Relation Name Comments Asthma Brother Cancer Father bladder Other Maternal Grandfather liver c ancer Other Maternal Grandmother dementi a Good Health Mother Heart Disease Paternal Grandfather [place] Cancer-breast No Family History Cancer-colon No Family History Cancer-ovarian No Family History Diabetes No Family History Stroke No Family History Relation Name Status Comments Brother Alive Father Alive Maternal Grandfather Maternal Grandmother Mother Alive Paternal Grandfather (Age 70) [place] Paternal Grandmother (Age 82) li matt cancer [...] - Respiratory Rate 16 05/28/2015 2:20 PM MATERIAL COMBINER Oxygen Saturation 98% 05/28/2015 2:20 PM MATERIAL COMBINER Inhaled Oxygen Concentration - - Weight 56.1 [...] 05/17/2022 05/17/2012 COVID-19 vaccine series ( season) 2024 Influenza for age 9-49 03/20/2024 Pap test [...] 16 Negative Negative 10/17/2021 10:54 AM CDT [facility] TYPE 18 Negative Negative 10/17/2021 10:54 AM CDT [facility] LAB[facility]ORY OTHER HIGH RISK TYPES Negative Negative 10/17/2021 10:54 AM CDT [facility] Other (Cervical/Vagina l) 10/11/2021 2:30 PM CDT 10/15/2021 8:53 AM CDT Narrative [facility] - 10/17/2021 10:54 AM CDT HPV types 16, 18, 31, 33, 35, 39, 45, 51, 52, 56, 58, 59, 66 and 68 DNA were undetectable or below the pre-set threshold. Methodology: Shaye Lupe 4800 HPV Test October Fang [facility] [address] [place] [address], from Last 3 Months or Most Recently Relevant to Health Maintenance Care Teams Shipping And Receiving Clerk Relationship Specialty Start Date End Date Pcp, No . PCP - General 04/30/20
--- OUTSIDE RECORDS SUMMARY | 2024-03-31 16:29 | XMS_ITS | Encounter Summary ---
Author Organization [facility] Address [address] [place] [address] Care Team Providers Care Scratch Polisher Name Role Phone No Ref-Primary, Physician Primary [...] on filedocumented in this encounter Care Teams Scratch Polisher Relationship Specialty Start Date End Date No Ref-Primary, Physician PCP - General 10/27/23 documented as of this encounter
[2024-04-01 14:24] LABS: Strep B DNA Probe Negative (Negative)
[2024-04-02 08:21] LABS: Strep B Susceptibility Needed? No
== END 2024-03-31 16:29 | disposition home or self-care (01) ==
LOC: NFLDREF 16:29
PROVIDERS: Visit Provider Obstetrics & Gynecology
DX: Z34.83 Encounter for supervision of other normal pregnancy, third trimester (principal); Z88.0 Allergy status to penicillin
CPT/HCPCS: 87081; 87653

== ENCOUNTER 2024-04-25 13:41 | Outpatient (CLI) | payer OTHER, SELFPAY ==
--- OUTSIDE RECORDS SUMMARY | 2024-04-25 13:43 | XMS_ITS | Referral Summary ---
Author Organization [facility] Address [address] [place] [id number] Care Team Providers Care Tailor Garment Fitter Name Role Phone No Ref-Primary, Physician Primary [...] of Treatment Not on file Care Teams Tailor Garment Fitter Relationship Specialty Start Date End Date No Ref-Primary, Physician PCP - General 10/27/23
--- OUTSIDE RECORDS SUMMARY | 2024-04-25 13:43 | XMS_ITS | Encounter Summary ---
Author Organization [facility] Address [address] [place] [address] Care Team Providers Care Rural Electrification Engineer Name Role Phone No Ref-Primary, Physician Primary [...] on filedocumented in this encounter Care Teams Rural Electrification Engineer Relationship Specialty Start Date End Date No Ref-Primary, Physician PCP - General 10/27/23 documented as of this encounter
--- OUTSIDE RECORDS SUMMARY | 2024-04-25 13:43 | XMS_ITS | Clinical Summary ---
Author Organization [facility] Address [address] [place] [id number] Care Team Providers Care Physician Compensation Analyst Name Role Phone No Ref-Primary, Physician Primary [...] MATERNAL SCREENING DISCUSSION 09/29/2023 OBGCT (OB) 01/05/2024 COVID-19 Vaccine ( season) 2024 09/25/2023, 07/17/2021, 10/25/2020, Additional history exists INFLUENZA VACCINE (#1) 2024 , 03/25/2022, 02/22/2022 GROUP B STREP SCREENING 03/29/2024 PAP 10/11/2024 10/11/2021 DTAP/TDAP/TD IMMUNIZATION (8 - Td or Tdap) 03/21/2032 03/21/2022, 05/17/2012, 07/28/2007, Additional history exists HEPATITIS B IMMUNIZATION Completed 999, 05/10/1997, 04/03/1997 HPV IMMUNIZATION Completed 04/27/2009, , 10/25/2008 MENINGITIS IMMUNIZATION Aged Out No l onger eligible based on patient's age to complete this topic Pneumococcal Vaccine: Pediatrics (0 to 5 Years) and At-Risk Patients (6 to 64 Years) Aged Out No longer eligible based on patient's age to complete this topic RSV MONOCLONAL ANTIBODY Aged Out No l onger eligible based on patient's age to complete this topic RSV VACCINE (No Doses Required) Completed Care Teams Physician Compensation Analyst Relationship Specialty Start Date End Date No Ref-Primary, Physician PCP - General 10/27/23
--- OUTSIDE RECORDS SUMMARY | 2024-04-25 13:44 | XMS_ITS | Clinical Summary ---
Author Organization [facility] Address [place], [place] [address] Care Team Providers Care Lining Parts Sewer Name Role Phone Pcp, No Primary Care [...] Good Health Mother Heart Disease Paternal Grandfather [place] Cancer-breast No Family History Cancer-colon No Family History Cancer-ovarian No Family History Diabetes No Family History Stroke No Family History Relation Name Status Comments Brother Alive Father Alive Maternal Grandfather Maternal Grandmother Mother Alive Paternal Grandfather (Age 70) [place] Paternal Grandmother (Age 82) li matt cancer [...] - Respiratory Rate 16 05/28/2015 2:20 PM BACK SIZER Oxygen Saturation 98% 05/28/2015 2:20 PM BACK SIZER Inhaled Oxygen Concentration - - Weight 56.1 [...] Name Priority Date/Time Associated Diagnosis Comments HPV HIGH RISK Routine 10/11/2021 2:30 PM CDT from Last 3 Months or Most Recently Relevant to Health Maintenance Results * HPV HIGH RISK (10/11/2021 2:30 PM CDT) TYPE 16 Negative Negative 10/17/2021 10:54 AM CDT [facility] TR[facility] LAB[facility]AT[facility] TYPE 18 Negative Negative 10/17/2021 10:54 AM CDT [facility] TR[facility] LAB[facility]ORY OTHER HIGH RISK TYPES Negative Negative 10/17/2021 10:54 AM CDT [facility] LAB[facility] Other (Cervical/Vagina l) 10/11/2021 2:30 PM CDT 10/15/2021 8:53 AM CDT Narrative [facility] - 10/17/2021 10:54 AM CDT HPV types 16, 18, 31, 33, 35, 39, 45, 51, 52, 56, 58, 59, 66 and 68 DNA were undetectable or below the pre-set threshold. Methodology: Shaye Lupe 4800 HPV Test October Fang [facility] [address] [place] [address], from Last 3 Months or Most Recently Relevant to Health Maintenance Care Teams Lining Parts Sewer Relationship Specialty Start Date End Date Pcp, No . PCP - General 04/30/20
--- NOTE | 2024-04-25 14:00 | CRLHL7_ITS ---
For Patients: As a result of the Century Cures Act, medical imaging exams and procedure reports are released immediately into your electronic medical record. You may view this report before your referring provider. If you have questions, please contact your health care provider. INDICATION: measuring greater than dates COMPARISON: 03/02/2024 TECHNIQUE: Real time stack scale imaging of the fetus was performed. FINDINGS: Sonographic imaging demonstrates a single living intrauterine gestation. Fetus demonstrates a regular cardiac rate of 127 beats per minute. Fetus has a vertex position. The placenta lies anteriorly. Amniotic fluid volume single deepest vertical pocket: 9.2 cm. ELZBIETA 24.3 cm. The estimated weight is 4376gm which lies at the 96th %. On the prior OB ultrasound exam dated 03/02/2024 the estimated weight was at the 54th%. BPD 61st percentile. HC is 78th percentile. AC greater than 97th percentile. FL is 40th percentile. The HC/AC ratio measures 0.91 range (0.89-1.04). IMPRESSION: Sonographic gestational age 39 weeks 5 days and sonographic due date of 04/27/2024. Good correlation with dates. Normal interval growth. Estimated weight 96th percentile. Abdominal circumference greater than 97th percentile. Amniotic fluid SDP 9.2 cm. ELZBIETA 24.3 cm. Dictated by Harley Wood MD @ 04/26/2024 11:44:14 AM (Electronically Signed)
== END 2024-04-25 13:42 | disposition home or self-care (01) ==
PROVIDERS: Visit Provider Obstetrics & Gynecology
DX: O36.63X0 Maternal care for excessive fetal growth, third trimester, not applicable or unspecified (principal); Z3A.39 39 weeks gestation of pregnancy
CPT/HCPCS: 76816

== ENCOUNTER 2024-04-27 06:49 | Inpatient (IN) | payer OTHER, SELFPAY ==
[2024-04-27] VITALS (31 sets, daily range): BP systolic 113–175; BP diastolic 55–85; PULSE 78–109; RESP 16–18; TEMP 36.6–37.6; O2SAT 96–98; BMI 29.9
--- OUTSIDE RECORDS SUMMARY | 2024-04-27 06:51 | XMS_ITS | Clinical Summary ---
Author Organization [facility] Address [address] [place] [id number] Care Team Providers Care Farm Equipment Engineer Name Role Phone No Ref-Primary, Physician [...] VACCINE (No Doses Required) Completed Care Teams Farm Equipment Engineer Relationship Specialty Start Date End Date No Ref-Primary, Physician PCP - General 10/27/23
--- OUTSIDE RECORDS SUMMARY | 2024-04-27 06:52 | XMS_ITS | Referral Summary ---
Author Organization [facility] Address [address] [place] [address] Care Team Providers Care Chair Maker Name Role Phone No Ref-Primary, Physician Primary [...] of Treatment Not on file Care Teams Chair Maker Relationship Specialty Start Date End Date No Ref-Primary, Physician PCP - General 10/27/23
--- OUTSIDE RECORDS SUMMARY | 2024-04-27 06:52 | XMS_ITS | Clinical Summary ---
Author Organization [employer] [facility] Address [place], [place] [address] Care Team Providers Care Transit Clerk Name Role Phone Pcp, No Primary [...] Good Health Mother Heart Disease Paternal Grandfather [place] Cancer-breast No Family History Cancer-colon No Family History Cancer-ovarian No Family History Diabetes No Family History Stroke No Family History Relation Name Status Comments Brother Alive Father Alive Maternal Grandfather Maternal Grandmother Mother Alive Paternal Grandfather (Age 70) [place] Paternal Grandmother (Age 82) li matt cancer [...] - Respiratory Rate 16 05/28/2015 2:20 PM HORTICULTURAL SPECIALTY GROWER Oxygen Saturation 98% 05/28/2015 2:20 PM HORTICULTURAL SPECIALTY GROWER Inhaled Oxygen Concentration - - Weight 56.1 [...] 16 Negative Negative 10/17/2021 10:54 AM CDT [facility] LAB[facility]AT[facility] TYPE 18 Negative Negative 10/17/2021 10:54 AM CDT [facility] OTHER HIGH RISK TYPES Negative Negative 10/17/2021 10:54 AM CDT [facility] Other (Cervical/Vagina l) 10/11/2021 2:30 PM CDT 10/15/2021 8:53 AM CDT Narrative [facility] - 10/17/2021 10:54 AM CDT HPV types 16, 18, 31, 33, 35, 39, 45, 51, 52, 56, 58, 59, 66 and 68 DNA were undetectable or below the pre-set threshold. Methodology: Shaye Lupe 4800 HPV Test October Fang [facility] [address] [place] [address], from Last 3 Months or Most Recently Relevant to Health Maintenance Care Teams Transit Clerk Relationship Specialty Start Date End Date Pcp, No . PCP - General 04/30/20
--- OUTSIDE RECORDS SUMMARY | 2024-04-27 06:52 | XMS_ITS | Encounter Summary ---
Author Organization [facility] Address [address] [place] [address] Care Team Providers Care Collections Representative Name Role Phone No Ref-Primary, Physician Primary [...] on filedocumented in this encounter Care Teams Collections Representative Relationship Specialty Start Date End Date No Ref-Primary, Physician PCP - General 10/27/23 documented as of this encounter
--- NOTE | 2024-04-27 07:45 | P.OBHP_ITS ---
OB - H&P: HPI Labor/Induction History of Present Illness Time Seen by Provider: 07:45 Date Seen: 04/27/24 Chief Complaint: IOL Chief complaint: Maternity Narrative: The patient is a 33 year old 2 para 1 at 40w1d gestation by LMP, who presents for IOL in the setting of polyhydramnios and suspected macrosomia. is otherwise complicated by advanced maternal age, anemia. Complete H&P was done by Dr. Kilgore on 04/06/2024. Faye was seen yesterday in the clinic, where membranes tubing was performed. She notes she has had irregular/mild contractions since that time and some brown tinged discharge suggestive of old blood from exam. Denies any regular/painful uterine contractions, vaginal bleeding or leaking of fluids. Endorses active movement. Specific Issues/Plans G 2 P 1001 H&P done by Dr. Kilgore on 04/06/2024 # Advanced maternal age. Declines genetic screening Level 2 ultrasound: Mild bilateral pyelectasis is seen. Rec. f/u US to reevaluate kidneys at 32 weeks. Pyelectasis is resolved as of 03/02 US with MFM here # Anemia with Hb 10.8 * Ferrous sulfate 325 mg QOD # Suspected Macrosomia * Fundal height greater than dates * Growth ultrasound obtained: 96%tile (9lb 10oz), AC >97%tile (04/25/24) # Polyhydramnios * Newly diagnosed on 04/25 * SDP 9.2 cm, ELZBIETA 24.3 cm Flu: March 2023 Covid: Booster administered on 09/25/2023 TDAP: 02/19/24 Meds Home Medications and Allergies Home Medications ?Medication ?Instructions ?Recorded ?Confirmed ?Type docosahexaenoic acid 200 mg 200 mg PO DAILY PRN 09/25/23 04/27/24 History capsule ( DHA) Allergies Allergy/AdvReac Type Severity Reaction Status Date / Time Penicillins Allergy Mild Unknown Verified 04/26/24 14:47 OB - H&P: Exam Physical Exam: Vital signs: Temp Pulse BP Pulse Ox 98.2 F 94 113/75 97 04/27/24 07:27 04/27/24 07:28 04/27/24 07:28 04/27/24 07:21 Narrative: General: Alert and oriented, in no acute distress Psych: Appropriate mood and affect Abdomen: Gravid. Nontender. heart rate: Category 1. Baseline of 135 beats per minute, moderate variability, accelerations present, decelerations absent. [place]: Irregular uterine contractions, occurring as frequently as every 6 minutes. Cervix: Exam per Dr. Smiley yesterday, 2.5/70/-1. OB - Problem Based A/P Additional Plan (1) care: Status: Acute (2) Advanced maternal age (AMA) in : Status: Acute (3) Anemia affecting : Status: Acute (4) Polyhydramnios: Status: Acute (5) Suspected macroscopic fetus: Status: Acute Plan Ms. Hicks is a 33yo ongoing IOL at 40w1d GA in the setting of polyhydramnios and suspected macrosomia. is otherwise complicated by AMA and anemia. - Admit to labor and delivery for IOL. Cervix was favorable per Dr. REDMAN yesterday, s/p membrane sweep. Plan to start IOL with pitocin - 2mu/min and titrate 2mu/min every 30 minutes. Anticipate AROM around noon. - EFW is 4376g at 95%ile by US on 04/25, AC >97%ile. MVP 9.2cm, ELZBIETA 24.3cm. - Discussed potential maternal and risk of shoulder dystocia in the setting of suspected macrosomia (OASIS, PPH, brachial plexus injury, hypoxia, etc.). Reviewed potential interventions/maneuvers if dystocia were to occur. - Plan T/S and CBC on admission given anemia. BT O+. - GBS negative.
[2024-04-27] MEDS: LACTATED RINGERS 1000 ML 1,000 ML 125 ML IV (08:23)
[2024-04-27] MEDS: OXYTOCIN 30 unit/500 ML in NS 30 UNIT/500 ML BAG IVPB (08:24)
[2024-04-27 09:11] LABS: Basophils Absolute Auto 0.01 K/uL (0.00-0.30); Basophils Percent Auto 0.1 % (0.0-3.0); Eosinophils Absolute Auto 0.06 K/uL (0.00-0.50); Eosinophils Percent Auto 0.7 % (0.0-7.0); Hematocrit 39.9 % (33.0-51.0); Hemoglobin* 13.1 gm/dL (12.0-16.0); Immature Granulocytes Abs Auto 0.01 K/uL (0.00-0.30); Immature Granulocytes Pct Auto 0.1 %; Lymphocytes Absolute Auto 2.05 K/uL (0.90-2.90); Lymphocytes Percent Auto 23.1 % (20-44); Mean Corpuscular HGB Conc 33 gm/dL (32-36); Mean Corpuscular Hemoglobin 30 pg (26-34); Mean Corpuscular Volume 91 fL (80-100); Monocytes Percent Auto 8.3 % (0.0-11.0); Neutrophils Percent Auto 67.7 % (42.0-72.0); Platelet Count* 239 K/uL (140-440); RDW Coefficient of Variation % 15.3 % (11.5-15.5); White Blood Count* 8.87 K/uL (4.50-11.00)
[2024-04-27 09:19] LABS: Slide Review Reflex No
--- NOTE | 2024-04-27 15:33 | P.OBPN_ITS ---
Subjective Time Seen by Provider: 11:40 Date Seen: 04/27/24 Narrative: Faye is a 33yo at 40w1d gestation by LMP, who presents for IOL in the setting of polyhydramnios and suspected macrosomia. is otherwise complicated by advanced maternal age, anemia. Complete H&P was done by Dr. Kilgore on 04/06/2024. Patient notes regular contractions that are fairly mild. Denies vaginal bleeding or leaking of fluids. Endorses active movement. Objective Exam: General: Alert and oriented, in no acute distress Psych: Appropriate mood and affect Abdomen: Gravid. Nontender. Cervix: 3/70/-1, s/p AROM with return of clear fluid FHR: Category 1 [place]: Nikolas q2-4 minutes on 6mu/min of pitocin Vital Signs: Last Vital Signs Temp 98 F 04/27/24 14:39 Pulse 78 04/27/24 12:02 BP 119/69 04/27/24 12:02 Pulse Ox 97 04/27/24 07:21 Plan Plan: Ongoing IOL for polyhydramnios and suspected macrosomia. s/p AROM with return of clear fluid. Plan to hold pitocin at 6mu/min for 1 hour, then revise as needed. Patient understands her pain medication options, planning unmedicated delivery. Anticipate next exam in 4 hours, sooner as clinically indicated.
[2024-04-27] MEDS: LIDOCAINE 1 % PF 30 ML INJECTION (16:41)
[2024-04-27] MEDS: miSOPROStoL 800 MCG/4 TABLET PR (17:00)
--- NOTE | 2024-04-27 18:26 | W.PM.VAGD1_ITS ---
Procedure Procedure Done: Global Procedure Details: Normal spontaneous vaginal delivery Perineal repair Events: Polyhydramnios, AMA and Other (Suspected macrosomia, anemia) Intrapartal Events: Labor Induction Delivery augmentation: rupture of membranes Delivery monitor: external FHT Route of delivery: Laceration description: Perineal - 2nd Degree Delivery repair: Vicryl Estimated blood loss (mL): 250 Anesthesia type: Local Disposition: floor Complications: None Narrative: Faye is a 33yo at 40w1d gestation by LMP, admitted for IOL in the s etting of polyhydramnios and suspected macrosomia. is otherwise complicated by advanced maternal age, anemia. heart rate on admission was category 1. Her labor was induced with pitocin and natural methods were utilized for pain management. Status of bag of [place]: AROM performed with return of clear fluid. heart tones during active labor were category 1. She was anterior lip at 1544 relocated to birthing stool. Involuntary pushing began at 1605 when she was assumed to be complete. She delivered the head on birthing stool at 1612 in direct OA position, restituted TITO. Nuchal cord was noted and reduced at perineum. anterior shoulder was attempted to be delivered with gentle downward pressure and maternal expulsive effort x2 without success. She was immediately relocated to lithotomy position on the floor, making care to protect head during position change. Additional help was requested due to suspected shoulder dystocia. Once in lithotomy, the anterior shoulder was easily delivered with gentle downward pressure. The posterior shoulder and body followed without difficulty. Total time between deliver of the head and body was 30 seconds and immediately resolved in lithotomy, thus we did not classify this as a shoulder dystocia. The cord was clamped and cut at about 30 seconds of life to allow for resuscitation. Active management of the third stage was initiated with pitocin and gentle traction on the umbilical cord, and the placenta delivered spontaneous and intact at 1620. Cord gases sent: no Cord blood sent for infant ABO: yes Perineum and vagina were inspected, and the following lacerations were noted: 2nd degree laceration along previous scar. Repair was performed in the usual fashion with deep interrupted 2-0 vicryl then running 3-0 vicryl under local anesthesia. Fundal uterine tone was excellent throughout. There were several small clots in the lower uterine segment that were expressed, where cytotec 800mcg was administered rectally to reinforce tone. Excellent hemostasis was noted, with total EBL of 250cc. All counts were correct. Mother and infant in stable condition following the .? details: - Liveborn male at 1612 - APGARs were 7 and 8 at 1 and 5 minutes respectively - weight: 4190g
[2024-04-27 18:38] LABS: Aspartate Amino Transferase* 37 U/L (12-35); Creatinine* 0.8 mg/dL (0.5-1.5); Est. Creatinine Clearance* 84.76; Estimated Glomerular Filt Rate 98 ml/min
[2024-04-27 18:39] LABS: Alanine Aminotransferase* 21 U/L (4-35); Blood Urea Nitrogen* 13 mg/dL (5-24)
[2024-04-28 03:54] VITALS: BP 122/81; PULSE 86; RESP 18; TEMP 37; O2SAT 98
[2024-04-28 06:19] LABS: Hemoglobin* 11.7 gm/dL (12.0-16.0)
--- NOTE | 2024-04-28 07:58 | PM.OBDSVD1 ---
DS: Providers Provider Date Seen: 04/28/24 Date of admission: 04/27/24 06:49 Primary care physician: Not a Local Provider Admitting Clinician: Lili Berry MD Attending Physician on discharge: Ilsa Gamble CNM DS: Diagnosis Discharge Diagnosis (1) care and examination immediately after delivery: Status: Acute (2) Elevated blood pressure reading without diagnosis of hypertension: Status: Acute (3) Lactating mother: Status: Acute Exam Narrative: Exam Narrative: GENERAL APPEARANCE:? normal affect, alert, no distress MOOD:? appropriate CHEST:? clear to auscultation HEART:? regular rate and rhythm ABDOMEN:? soft, non-tender the uterine fundus is At Umbilicus, Midline and is appropriate for the stage of recovery. PERINEUM:? mild edema of the perineum, there is a Perineal Laceration,?2nd degree that is healing well. EXTREMITIES:? normal and no edema Const: Vital Signs, click to edit/add: Vital Signs - 24 hr 04/27/24 12:01 04/27/24 12:02 04/27/24 13:48 Temperature 98.2 F 97.8 F Pulse Rate 78 Pulse Rate [Blood Pressure Cuff] Respiratory Rate Blood Pressure 119/69 Blood Pressure [Le ft Arm] Pulse Oximetry Oxygen Delivery Me thod 04/27/24 14:39 04/27/24 16:27 04/27/24 16:41 Temperature 98 F Pulse Rate 101 H 99 Pulse Rate [Blood Pressure Cuff] Respiratory Rate Blood Pressure 125/75 129/74 Blood Pressure [Le ft Arm] Pulse Oximetry Oxygen Delivery Me thod 04/27/24 16:56 04/27/24 17:11 04/27/24 17:32 Temperature Pulse Rate 101 H 96 97 Pulse Rate [Blood Pressure Cuff] Respiratory Rate Blood Pressure 132/70 126/76 175/76 H Blood Pressure [Le ft Arm] Pulse Oximetry Oxygen Delivery Me thod 04/27/24 17:42 04/27/24 17:56 04/27/24 18:09 Temperature Pulse Rate 96 95 96 Pulse Rate [Blood Pressure Cuff] Respiratory Rate Blood Pressure 145/63 H 146/67 H 153/68 H Blood Pressure [Le ft Arm] Pulse Oximetry Oxygen Delivery Me thod 04/27/24 18:19 04/27/24 18:29 04/27/24 18:39 Temperature Pulse Rate 98 101 H 100 Pulse Rate [Blood Pressure Cuff] Respiratory Rate Blood Pressure 131/69 123/63 128/66 Blood Pressure [Le ft Arm] Pulse Oximetry Oxygen Delivery Me thod 04/27/24 18:49 04/27/24 18:56 04/27/24 18:59 Temperature 99.6 F Pulse Rate 96 108 H Pulse Rate [Blood Pressure Cuff] Respiratory Rate Blood Pressure 126/62 139/65 Blood Pressure [Le ft Arm] Pulse Oximetry Oxygen Delivery Ut thod 04/27/24 18:59 04/27/24 19:15 04/27/24 19:15 Temperature Pulse Rate 100 Pulse Rate [Blood Pressure Cuff] Respiratory Rate Blood Pressure 125/55 L Blood Pressure [Le ft Arm] 139/65 125/55 L Pulse Oximetry Oxygen Delivery Ut thod 04/27/24 19:30 04/27/24 19:30 04/27/24 19:44 Temperature Pulse Rate 105 H 103 H Pulse Rate [Blood Pressure Cuff] Respiratory Rate Blood Pressure 135/63 132/63 Blood Pressure [Le ft Arm] 135/63 [facility] 19[facility]44 04/27/24 20:10 04/27/24 20:10 Temperature Pulse Rate 108 H Pulse Rate [Blood Pressure Cuff] Respiratory Rate Blood Pressure 121/73 Blood Pressure [Le ft Arm] 132/63 121/73 Pulse [facility] 20:47 04/27/24 23:21 04/28/24 03:54 Temperature 99.3 F 98.6 F Pulse Rate Pulse Rate [Blood Pressure Cuff] 105 H 109 H 86 Respiratory Rate 16 18 18 Blood Pressure Blood Pressure [Le ft Arm] 126/85 131/80 122/81 Pulse Oximetry 98 Oxygen Delivery Ut thod Room Air Room Air Room Air OB - DS: Summary Hospital Course Hospital Course: Faye is a 33 y.o. G 2 P 2 who was admitted to [facility] for polyhydramnios and suspected macrosomia. ?She had a NVD that was uncomplicated. The patient feels well. ?The pain is well controlled with current medications. ?She has no new complaints. ?She is breast feeding and reports things are going well. the patient has done well.? Vitals have been stable.? She has remained afebrile.? Has a good appetite, is tolerating a general diet. ?She is voiding without difficulty.? She is passing gas and has not had a bowel movement.? She is ambulating and denies any dizziness.? Has small amount of rubra lochia. She is planning her have a vasectomy for prevention. Problems: elevated BP without diagnosis of HTN plan: Discharge home with baby. Follow up in 2 weeks and 6 weeks. , may see if needed Hgb [pending]. [Iron supplement ordered orally every other day] Elevated BP without diagnosis of HTN based on BP's, thought to be due to shaking but has had higher normotensive blood pressures Labs WNL with mildly elevated AST Consulted with Dr. Reilly who agrees to have her return next Thursday for BP check Call for signs/symptoms of preeclampsia Peripartum Data delivery method: Vaginal Laceration description: Perineal - 2nd Degree complications: none [place] Gender: Male Discharge Plan: Home Status at Discharge Functional status at discharge: independent ambulation Overall status at discharge: patient is progressing back to baseline Time Spent with Patient Time attestation: Total time spent providing and/or coordinating discharge services: Time spent: Less than 30 minutes Discharge Plan Discharge Disposition: Home, Self-Care Date of Admission: 04/27/24 06:49 Attending Provider on Discharge: Ilsa Gamble Primary Care Provider: Provider,Not a Local Condition: Stable Anticipated Discharge Date/Time: 04/28/24 12:00 Discharge Medications: New docusate sodium 100 mg Capsule 100 mg PO DAILY Qty: 90 0RF ibuprofen 600 mg Tablet 600 mg PO Q6H PRNQty: 60 0RF acetaminophen 500 mg Tablet 1,000 mg PO Q6H PRN (Reason: pain/fever) Qty: 0 0RF Continued DHA 200 mg capsule 200 mg PO DAILY PRN ferrous sulfate 325 mg (65 mg iron) tablet 325 mg PO Q OTHER DAY Qty: 60 0RF Discharge Orders: Discharge Order (Routine); Ordered 04/28/24 Ordered By: Ilsa Gamble Patient Education: OB Over the Counter Medication Information, OB Vaginal/Breast Feeding Additional Instructions: Discharge instructions were reviewed with the patient including signs and symptoms of infection and home going medications Nothing vaginally for 6 weeks: no tampons or intercourse Off Work or School for 6 weeks [facility]?on Wednesday 05/02 Call with any symptoms of: Severe headache that doesn't improve after taking medications Changes in vision, including temporary loss of vision, blurred vision, and/or light sensitivity Upper abdominal pain (usually under ribs on the right side) 2-week visit: discuss feeding concerns, review control options and screen for anxiety/depression. 6-week visit for an annual exam. consultation services are available to all mothers and babies for the first year after delivery.? To make an appointment, please call [phone]. Activity Level: Activity as Tolerated Discharge Diet: Regular Follow Up Appointments: [facility] [Provider Group] Forms: [facility] Info Instructions
[2024-04-28 09:06] VITALS: BP 113/71; PULSE 96; RESP 16; TEMP 36.6; O2SAT 97
[2024-04-28 12:38] VITALS: BP 101/61; PULSE 88; RESP 16; TEMP 36.9; O2SAT 96
[2024-04-28 16:11] VITALS: BP 112/74; PULSE 91; TEMP 36.7; O2SAT 95
--- NOTE | 2024-04-28 18:36 | PC.NURSE ---
Nursing Care Hours: [id number] Pt has no c/o pain. VSS, scant bloody discharge. Voiding, and tolerating regular meals. Pt initiating cares for baby. Discharge instructions went over with pt and spouse. No questions or concerns noted. No IV.
[2024-04-29 01:46] LABS: Rapid Plasma Reagin (RPR) Non Reactive (Non Reactive)
== END 2024-04-28 18:30 | disposition home or self-care (01) | DRG 807 ==
PROVIDERS: Admitting Provider Obstetrics & Gynecology; Visit Provider Obstetrics & Gynecology
DX: O70.1 Second degree perineal laceration during delivery (principal); Z37.0 Single live birth; Z3A.40 40 weeks gestation of pregnancy; O99.02 Anemia complicating childbirth; D64.9 Anemia, unspecified; O90.89 Other complications of the puerperium, not elsewhere classified; R03.0 Elevated blood-pressure reading, without diagnosis of hypertension
CPT/HCPCS: 36415; 82565; 84450; 84460; 84520; 85018; 85025; 86592; 86850; 86900; 86901; A9270; J2003; J7120